=== PATIENT | female | born 1995 | race African-American/Black ===

== ENCOUNTER 2016-11-19 02:45 | Emergency (ER) | payer OTHER ==
[2016-11-19 02:49] VITALS: BP 130/60; PULSE 92; RESP 18; TEMP 98.3
[2016-11-19 03:06] LABS: Appearance,Urine Cloudy (Clear); Bacteria,Urine Rare /hpf; Bilirubin,Urine Negative (Negative); Glucose,Urine (UA) Negative (Negative); Ketones,Urine Negative (Negative); Leukocyte Esterase,Urine Negative (Negative); Mucus,Urine Many /hpf; Nitrite,Urine Negative (Negative); Particle Count 12169; Protein,Urine Trace (Negative); RBC,Urine 1 /hpf (0-5); Specific Gravity,Urine 1.024 (1.001-1.035); Squamous Epithelial Cell,Urine 11 /hpf (0-4); UA Billing (MACRO vs. MICRO) MICRO; Urobilinogen,Urine <2.0 mg/dL (<2.0); WBC,Urine 1 /hpf (0-5)
--- NOTE | 2016-11-19 03:09 | ED ---
General Adult HPI - General Chief complaint: Abdominal Pain Stated complaint: Female Time Seen by Provider: 11/19/16 02:51 Source: patient, RN notes reviewed Mode of arrival: ambulatory Limitations: no limitations - History of Present Illness Initial comments: Patient is a 21-year-old female since emergency room for evaluation of urinary frequency. Patient states she was diagnosed for urinary tract infection about a month ago and was placed on Bactrim and never finished her prescription. Patient states she thinks that her urinary tract infection never went away. Patient states she's been having increasing symptoms over the past week and a half. Patient also states that she hasn't had a menstrual cycle since 10/08/16. Patient states she took a test last week and it was positive. Patient states she has 2 prior previous pregnancies. Patient denies history of miscarriages or ectopic pregnancies. Patient denies vaginal bleeding. Patient states she has a history of chlamydia in 2014. Patient denies any other history of STDs. Patient denies fevers or chills. Patient denies abdominal pain. Patient denies chest pain or shortness of breath. Patient denies nausea or vomiting. Patient denies pain or burning during urination or blood in urine. Patient just states she's having urinary frequency. - Related Data Home Medications Medication Instructions Recorded Confirmed No Known Home Medications [No 01/20/16 11/19/16 Known Home Medications] Allergies Allergy/AdvReac Type Severity Reaction Status Date / Time No Known Allergies Allergy Verified 11/19/16 02:49 Review of Systems ROS Statement: Those systems with pertinent positive or pertinent negative responses have been documented in the HPI. ROS Other: All systems not noted in ROS Statement are negative. Past Medical History Past Medical History: No Reported History History of Any Multi-Drug Resistant Organisms: None Reported Past Surgical History: No Surgical Hx Reported Past Psychological History: No Psychological Hx Reported Smoking Status: Never smoker Past Alcohol Use History: Occasional Past Drug Use History: Marijuana General Exam - General Exam Comments Initial Comments: Sitting in exam room, no acute distress. Limitations: no limitations General appearance: alert, in no apparent distress Head exam: Present: atraumatic, normocephalic, normal inspection Eye exam: Present: normal appearance ENT exam: Present: normal exam Neck exam: Present: normal inspection Respiratory exam: Present: normal lung sounds bilaterally. Absent: respiratory distress Cardiovascular Exam: Present: regular rate, normal rhythm, normal heart sounds GI/Abdominal exam: Present: soft, normal bowel sounds. Absent: distended, tenderness, guarding, rebound, rigid External exam: Present: normal external exam Speculum exam: Present: normal speculum exam By manual exam: Present: normal by manual exam Extremities exam: Present: normal inspection Back exam: Present: normal inspection. Absent: CVA tenderness (R), CVA tenderness (L) Neurological exam: Present: alert, oriented X3, CN II-XII intact, normal gait Psychiatric exam: Present: normal affect, normal mood Skin exam: Present: warm, dry, intact, normal color. Absent: rash Course Vital Signs 11/19/16 02:47 Temperature 98.3 F Pulse Rate 92 Respiratory 18 Rate Blood Pressure 130/60 O2 Sat by Pulse 99 Oximetry Medical Decision Making - Medical Decision Making Patient is a 21-year-old female presents emergency room for violation and urinary frequency. Urinalysis shows no signs of urinary tract infection. Urine beta hCG positive. Advised patient to follow-up with SUBWAY OPERATOR. Advised patient to return for worsening symptoms. Patient states she understands everything that was discussed with her. Case discussed with Dr. Winkler. - Lab Data Lab Results 11/19/16 11/19/16 11/19/16 Range/Units 02:53 02:53 03:11 Urine Color Yellow Urine Appearance Cloudy H (Clear) Urine pH 5.0 (5.0-8.0) Ur Specific [place] 1.024 (1.001-1.035) Urine Protein Trace H (Negative) Urine Glucose (UA) Negative (Negative) Urine Ketones Negative (Negative) Urine Blood Negative (Negative) Urine Nitrite Negative (Negative) Urine Bilirubin Negative (Negative) Urine Urobilinogen <2.0 (<2.0) mg/dL Ur Leukocyte Esterase Negative (Negative) Urine RBC 1 (0-5) /hpf Urine WBC 1 (0-5) /hpf Ur Squamous Epith Cells 11 H (0-4) /hpf Urine Bacteria Rare H (None) /hpf Urine Mucus Many H (None) /hpf Urine HCG, Qual Detected (Not Detectd) Trichomonas Ag (Rapid) Negative (Negative) Disposition Clinical Impression: Positive test Disposition: HOME SELF-CARE Condition: Good Instructions: (ED) Additional Instructions: Please follow up with SUBWAY OPERATOR. If any new symptom arises or symptoms worsen, return to ER as soon as possible. Referrals: Ashely Pascual MD [STAFF PHYSICIAN] - 1-2 days Time of Disposition: 04:02
== END 2016-11-19 04:15 | disposition home or self-care (01) ==
LOC: EC 02:45
DX: O99.89 Other specified diseases and conditions complicating pregnancy, childbirth and the puerperium (principal); R35.0 Frequency of micturition; Z32.01 Encounter for pregnancy test, result positive; Z3A.01 Less than 8 weeks gestation of pregnancy
CPT/HCPCS: 81001; 81025; 87070; 87086; 87205; 87491; 87591; 87808; 99284

== ENCOUNTER 2016-12-03 14:28 | Emergency (ER) | payer OTHER ==
[2016-12-03] MEDS ORDERED: METOCLOPRAMIDE 5 MG/ML 2 ML VIAL IVP STA (15:36)
[2016-12-03] MEDS ORDERED: SODIUM CHLORIDE 0.9% 1,000 ML IV STA ×2 (15:36)
--- NOTE | 2016-12-03 15:42 | ED ---
General Adult HPI - General Chief complaint: Nausea/Vomiting/Diarrhea Stated complaint: 5 weeks preg--vomiting Source: patient, family, RN notes reviewed, old records reviewed Mode of arrival: ambulatory Limitations: no limitations - History of Present Illness Initial comments: Chief complaint history of present illness this is a 21-year-old female here with her significant other 2 children. The patient is 3 para 2. Current pregnancies approximate 6 weeks along. Patient reports last night she didn't feel well vomited 4 times. Hasn't felt well since last night. Missed work last night and doesn't feel up to going to work tonight. She states she had no pain but with some tingling around her lips yesterday. - Related Data Previous Rx's Medication Instructions Recorded Metoclopramide [Reglan] 5 mg PO ACHS #15 tab 12/03/16 Allergies Allergy/AdvReac Type Severity Reaction Status Date / Time No Known Allergies Allergy Verified 12/03/16 15:37 Review of Systems ROS Statement: Those systems with pertinent positive or pertinent negative responses have been documented in the HPI. Review of systems. No visual acuity changes or headache no numbness to her face or hands this time no chest pain or shortness of breath. No abdominal pain. She had nausea vomiting last night. Chronic low back discomfort not new. No frequency urgency or dysuria. Negative urine test done approximately 2 weeks ago. It was positive for being . She thinks she is 6 weeks . No peripheral pain numbness tingling or deficits. All systems are reviewed. Past medical problems. 3 para 2. Current 6 weeks. Chief complaint today is nausea vomiting last night. Patient denies any surgeries. Family history significant for cancers and include when mother with lung cancer 2 aunts with lung cancer and great grandmother breast cancer. The patient denies any ALLERGIES nonsmoker nondrinker. ROS Other: All systems not noted in ROS Statement are negative. Past Medical History Past Medical History: No Reported History History of Any Multi-Drug Resistant Organisms: None Reported Past Surgical History: No Surgical Hx Reported Past Psychological History: No Psychological Hx Reported Smoking Status: Never smoker Past Alcohol Use History: Occasional Past Drug Use History: Marijuana General Exam - General Exam Comments Initial Comments: General: The patient is awake and alert, in no distress, and does not appear acutely ill. Nausea vomiting yesterday. Feels mildly weak here today. Vital signs shows temperature 99.0 pulse 93 respiratory rate 20 pulse ox R percent room air blood pressure 102/73 Eye: Pupils are equal, round and reactive to light, extra-ocular movements are intact ; there is normal conjunctiva bilaterally. No signs of icterus. Ears, nose, mouth and throat: There are moist mucous membranes and no oral lesions. Neck: The neck is supple, there is no tenderness , no anterior cervical lymphadenopathy, thyroid not enlarged. Cardiovascular: There is a regular rate and rhythm. No murmur, rub or gallop is appreciated. Respiratory: Lungs are clear to auscultation, respirations are non-labored, breath sounds are equal. No wheezes, stridor, rales, or rhonchi. Gastrointestinal: Soft, non-distended, non-tender abdomen without masses or organomegaly noted. There is no rebound or guarding present. No CVA tenderness. Bowel sounds are unremarkable. 6 weeks . No vaginal discharge no bleeding. No cramping. Back: There is no tenderness to palpation in the midline. There is no obvious deformity. No rashes noted. Chronic low back discomfort with twisting turning and moving. No injuries. No pain with palpation. Musculoskeletal: Normal ROM, no tenderness, There is no pedal edema. There is no calf tenderness or swelling. Sensation intact. Pulses equal bilaterally 2+. Neurological: No neuro deficits noted at this time. No complaints of any weakness or numbness or tingling. Skin: Skin is warm and dry and no rashes or lesions are noted. Limitations: no limitations Course Vital Signs 12/03/16 14:31 Temperature 99.0 F Pulse Rate 93 Respiratory 20 Rate Blood Pressure 102/73 O2 Sat by Pulse 100 Oximetry Medical Decision Making - Medical Decision Making Medical decision making; patient's white count 10.5 hemoglobin 12 hematocrit 35 with a potassium 3.8. BUN 10 creatinine 0.56 with GFR greater than 60. Glucose 108. Amylase lipase normal limits. Patient was rehydrated in emergency room. She be placed on Reglan tablets to go home with. She has an appointment to follow-up with her ORDER DESK CALLER. If in the meanwhile she has a difficulty she is to return emergency room. Patient is requesting off work slip for yesterday and today. - Lab Data Result diagrams: 12/03/16 16:05 12/03/16 16:05 Lab Results 12/03/16 12/03/16 Range/Units 16:05 16:05 WBC 10.5 (3.8-10.6) k/uL RBC 4.24 (3.80-5.40) m/uL Hgb 12.0 (11.4-16.0) gm/dL Hct 35.5 (34.0-46.0) % MCV 83.8 (80.0-100.0) fL MCH 28.3 (25.0-35.0) pg MCHC 33.7 (31.0-37.0) g/dL RDW 13.9 (11.5-15.5) % Plt Count 237 (150-450) k/uL Neutrophils % 77 % Lymphocytes % 17 % Monocytes % 3 % Eosinophils % 2 % Basophils % 0 % Neutrophils # 8.1 H (1.3-7.7) k/uL Lymphocytes # 1.8 (1.0-4.8) k/uL Monocytes # 0.3 (0-1.0) k/uL Eosinophils # 0.2 (0-0.7) k/uL Basophils # 0.0 (0-0.2) k/uL Sodium 139 (137-145) mmol/L Potassium 3.8 (3.5-5.1) mmol/L Chloride 105 (98-107) mmol/L Carbon Dioxide 22 (22-30) mmol/L Anion Gap 12 mmol/L BUN 10 (7-17) mg/dL Creatinine 0.56 (0.52-1.04) mg/dL Est GFR (MDRD) Af Amer >60 (>60 ml/min/1.73 sqM) Est GFR (MDRD) Non-Af >60 (>60 ml/min/1.73 sqM) Glucose 108 H (74-99) mg/dL Calcium 9.3 (8.4-10.2) mg/dL Total Bilirubin 0.8 (0.2-1.3) mg/dL AST 24 (14-36) U/L ALT 24 (9-52) U/L Alkaline Phosphatase 56 (38-126) U/L Total Protein 7.7 (6.3-8.2) g/dL Albumin 3.9 (3.5-5.0) g/dL Amylase 55 (30-110) U/L Lipase 54 (23-300) U/L Disposition Clinical Impression: Vomiting alone Disposition: HOME SELF-CARE Condition: Stable Instructions: Acute Nausea and Vomiting (ED) Additional Instructions: Use Reglan to control nausea vomiting advance diet. Follow-up family physician and ORDER DESK CALLER. Return emergency room as needed Prescriptions: Metoclopramide [Reglan] 5 mg PO ACHS #15 tab Time of Disposition: 17:05
[2016-12-03 16:15] LABS: Basophils % (A) 0 %; CH 27.9; CHCM 33.3; Eosinophils # (A) 0.2 k/uL (0-0.7); Eosinophils % (A) 2 %; HCT 35.5 % (34.0-46.0); HDW 2.38; Luc # (Auto) 0.11; Luc % (Auto) 1; Lymphocytes # (A) 1.8 k/uL (1.0-4.8); Lymphocytes % (A) 17 %; MCH 28.3 pg (25.0-35.0); MCHC 33.7 g/dL (31.0-37.0); MCV 83.8 fL (80.0-100.0); Mean Platelet Volume 6.9; Monocytes # (A) 0.3 k/uL (0-1.0); Monocytes % (A) 3 %; Neutrophils # (A) 8.1 k/uL (1.3-7.7); Neutrophils % (A) 77 %; RBC 4.24 m/uL (3.80-5.40); RDW 13.9 % (11.5-15.5); WBC 10.5 k/uL (3.8-10.6); WBC (Perox) 10.71
[2016-12-03 16:29] LABS: ALT 24 U/L (9-52); AST 24 U/L (14-36); Alkaline Phosphatase 56 U/L (38-126); Amylase 55 U/L (30-110); Anion Gap 12 mmol/L; Blood Urea Nitrogen 10 mg/dL (7-17); Calcium 9.3 mg/dL (8.4-10.2); Carbon Dioxide 22 mmol/L (22-30); Chloride 105 mmol/L (98-107); Glucose 108 mg/dL (74-99); Non-African American GFR(MDRD) >60 (>60 ml/min/1.73 sqM); Potassium 3.8 mmol/L (3.5-5.1); Sodium 139 mmol/L (137-145); Total Bilirubin 0.8 mg/dL (0.2-1.3); Total Protein 7.7 g/dL (6.3-8.2)
[2016-12-03 17:33] VITALS: BP 90/55; PULSE 90; RESP 18; TEMP 97.8
== END 2016-12-03 17:32 | disposition home or self-care (01) ==
LOC: EC 14:28
DX: O21.9 Vomiting of pregnancy, unspecified (principal); Z3A.01 Less than 8 weeks gestation of pregnancy
CPT/HCPCS: 36415; 80053; 82150; 83690; 85025; 99284; 96374; 96361; J2765

== ENCOUNTER 2016-12-22 11:07 | Emergency (ER) | payer OTHER ==
[2016-12-22 11:11] VITALS: BP 120/67; PULSE 77; RESP 18; TEMP 97.8
--- NOTE | 2016-12-22 11:57 | ED ---
General Adult HPI - General Chief complaint: Nausea/Vomiting/Diarrhea Stated complaint: VOMITNG BLOOD, APX 8 WEEKS Time Seen by Provider: 12/22/16 11:24 Source: patient, RN notes reviewed, old records reviewed Mode of arrival: ambulatory Limitations: no limitations - History of Present Illness Initial comments: This is a 21-year-old female here for evaluation. Patient they presents for evaluation of nausea and vomiting. Patient episodes of vomiting. Patient is a weeks by dates. patient's no abdominal pain no dysuria. No diarrhea. Patient states during one of her episodes of vomiting she did have some blood in her vomit. Bright red. There is since resolved. Patient is currently mildly nauseous but not actively vomiting. States she is able to tolerate oral intake, has been drinking liquids. No pain. - Related Data Home Medications Medication Instructions Recorded Confirmed Metoclopramide [Reglan] 5 mg PO Q8H PRN 12/22/16 12/22/16 Allergies Allergy/AdvReac Type Severity Reaction Status Date / Time No Known Allergies Allergy Verified 12/22/16 11:28 Review of Systems ROS Statement: Those systems with pertinent positive or pertinent negative responses have been documented in the HPI. ROS Other: All systems not noted in ROS Statement are negative. Past Medical History Past Medical History: No Reported History History of Any Multi-Drug Resistant Organisms: None Reported Past Surgical History: No Surgical Hx Reported Past Psychological History: No Psychological Hx Reported Smoking Status: Never smoker Past Alcohol Use History: None Reported Past Drug Use History: None Reported General Exam Limitations: no limitations General appearance: alert, in no apparent distress Head exam: Present: atraumatic, normocephalic, normal inspection Eye exam: Present: normal appearance, PERRL, EOMI. Absent: scleral icterus, conjunctival injection, periorbital swelling ENT exam: Present: normal exam, mucous membranes moist Neck exam: Present: normal inspection. Absent: tenderness, meningismus, lymphadenopathy Respiratory exam: Present: normal lung sounds bilaterally. Absent: respiratory distress, wheezes, rales, rhonchi, stridor Cardiovascular Exam: Present: regular rate, normal rhythm, normal heart sounds. Absent: systolic murmur, diastolic murmur, rubs, gallop, clicks GI/Abdominal exam: Present: soft, normal bowel sounds. Absent: distended, tenderness, guarding, rebound, rigid Extremities exam: Present: normal inspection, full ROM, normal capillary refill. Absent: tenderness, pedal edema, joint swelling, calf tenderness Back exam: Present: normal inspection Neurological exam: Present: alert, oriented X3, CN II-XII intact Psychiatric exam: Present: normal affect, normal mood Skin exam: Present: warm, dry, intact, normal color. Absent: rash Course Vital Signs 12/22/16 11:08 Temperature 97.8 F Pulse Rate 77 Respiratory 18 Rate Blood Pressure 120/67 O2 Sat by Pulse 98 Oximetry - Reevaluation(s) Reevaluation #1: 12/22/16 11:55 Patient consult regarding blood in vomit, questions answered Medical Decision Making - Medical Decision Making 21 female here for evaluation of nausea vomiting of . Patient is 8 weeks , patient had episode of vomiting with blood in vomit. It is resolved. Patient is in no distress. Urine is negative for infection. Patient does have antiemetics at home, we'll prescribe vitamin supplementation and discharge home Disposition Clinical Impression: Vomiting alone, Vomiting affecting Disposition: HOME SELF-CARE Condition: Good Instructions: Nausea and Vomiting in (ED) Referrals: None,Stated [Primary Care Provider] - 1-2 days
[2016-12-22] MEDS ORDERED: diphenhydrAMINE 25 MG CAP PO STA (11:58)
[2016-12-22] MEDS ORDERED: PYRIDOXINE 50 MG TAB PO STA (11:58)
[2016-12-22 12:49] LABS: Appearance,Urine Cloudy (Clear); Bacteria,Urine Rare /hpf; Bilirubin,Urine Negative (Negative); Calcium Oxalate Crystals,Urine Moderate /hpf; Glucose,Urine (UA) Negative (Negative); Ketones,Urine Negative (Negative); Leukocyte Esterase,Urine Negative (Negative); Mucus,Urine Moderate /hpf; Nitrite,Urine Negative (Negative); PH, Urine 5.5 (5.0-8.0); Particle Count 10646; Protein,Urine Trace (Negative); Specific Gravity,Urine 1.024 (1.001-1.035); Squamous Epithelial Cell,Urine 5 /hpf (0-4); UA Billing (MACRO vs. MICRO) MICRO; Urobilinogen,Urine <2.0 mg/dL (<2.0); WBC,Urine 3 /hpf (0-5)
== END 2016-12-22 12:37 | disposition home or self-care (01) ==
LOC: EC 11:07
DX: O21.0 Mild hyperemesis gravidarum (principal); Z3A.08 8 weeks gestation of pregnancy
CPT/HCPCS: 81001; 99284

== ENCOUNTER 2016-12-26 07:56 | Emergency (ER) | payer OTHER ==
[2016-12-26] MEDS ORDERED: SODIUM CHLORIDE 0.9% 1,000 ML IV ONE (08:27)
[2016-12-26] MEDS ORDERED: diphenhydrAMINE 50 MG/ML 1 ML VIAL IVP STA (08:28)
[2016-12-26] MEDS ORDERED: PYRIDOXINE 100 MG/ML 1 ML VIAL IVP STA (08:30)
--- NOTE | 2016-12-26 08:31 | ED ---
Nausea/Vomiting/Diarrhea HPI - General Chief complaint: Nausea/Vomiting/Diarrhea Stated complaint: 2 month , vomiting Time Seen by Provider: 12/26/16 08:12 Source: patient, RN notes reviewed Mode of arrival: ambulatory Limitations: no limitations - History of Present Illness Initial comments: Patient is a 21-year-old female presents to the emergency room for evaluation of vomiting. Patient states she is about 11 weeks . Patient states she 's had multiple episodes of vomiting during this . Patient is . Patient states she's been vomiting for the past 3 days. Patient states she has been unable to keep any food down or drink any water. Patient states she has Reglan at home and is not helping her. Patient denies abdominal pain. Patient does state she's having throat pain. Patient states the throat pain began after vomiting started. Patient denies fevers or chills. Patient denies headache or dizziness. Patient denies pain or burning during urination, trouble urinating or blood in urine. Patient denies any vaginal bleeding or vaginal discomfort. Patient denies any history of abdominal surgeries. Patient denies chest pain or shortness of breath. - Related Data Home Medications Medication Instructions Recorded Confirmed Metoclopramide [Reglan] 5 mg PO Q8H PRN 12/22/16 12/26/16 Wpi-Zrkt-[place] Acid 1 cap PO DAILY 12/26/16 12/26/16 [-U Capsule (formulary)] Allergies Allergy/AdvReac Type Severity Reaction Status Date / Time No Known Allergies Allergy Verified 12/26/16 08:03 Review of Systems ROS Statement: Those systems with pertinent positive or pertinent negative responses have been documented in the HPI. ROS Other: All systems not noted in ROS Statement are negative. Past Medical History Past Medical History: No Reported History History of Any Multi-Drug Resistant Organisms: None Reported Past Surgical History: No Surgical Hx Reported Past Psychological History: No Psychological Hx Reported Smoking Status: Never smoker Past Alcohol Use History: None Reported Past Drug Use History: None Reported General Exam - General Exam Comments Initial Comments: Laying in exam room, no acute distress. Limitations: no limitations General appearance: alert, in no apparent distress Head exam: Present: atraumatic, normocephalic, normal inspection Eye exam: Present: normal appearance ENT exam: Present: normal exam Neck exam: Present: normal inspection Respiratory exam: Present: normal lung sounds bilaterally. Absent: respiratory distress Cardiovascular Exam: Present: regular rate, normal rhythm, normal heart sounds GI/Abdominal exam: Present: soft, normal bowel sounds. Absent: distended, tenderness, guarding, rebound, rigid Extremities exam: Present: normal inspection Back exam: Present: normal inspection Neurological exam: Present: alert, oriented X3, CN II-XII intact, normal gait Psychiatric exam: Present: normal affect, normal mood Skin exam: Present: warm, dry, intact, normal color. Absent: rash Course Vital Signs 12/26/16 08:00 Temperature 98.5 F Pulse Rate 98 Respiratory 16 Rate Blood Pressure 113/77 O2 Sat by Pulse 99 Oximetry Medical Decision Making - Medical Decision Making Patient is a 21-year-old female presents emergency room for evaluation of vomiting. Patient is about 11 weeks . Patient given antinausea medications and feeling better. Labs show no concerning findings. Advised patient to continue taking Reglan at home as needed and to follow-up with her OB /AEROSPACE ENGINEER in 24-48 hours. Patient states she understands everything that was discussed with her. Return parameters discussed. Case discussed with Dr. Austin. - Lab Data Result diagrams: 12/26/16 08:26 12/26/16 08:26 Lab Results 12/26/16 12/26/16 12/26/16 Range/Units 08:26 08:26 08:26 WBC 7.8 (3.8-10.6) k/uL RBC 4.30 (3.80-5.40) m/uL Hgb 12.3 (11.4-16.0) gm/dL Hct 36.4 (34.0-46.0) % MCV 84.7 (80.0-100.0) fL MCH 28.7 (25.0-35.0) pg MCHC 33.9 (31.0-37.0) g/dL RDW 13.6 (11.5-15.5) % Plt Count 253 (150-450) k/uL Neutrophils % 75 % Lymphocytes % 18 % Monocytes % 4 % Eosinophils % 2 % Basophils % 0 % Neutrophils # 5.8 (1.3-7.7) k/uL Lymphocytes # 1.4 (1.0-4.8) k/uL Monocytes # 0.3 (0-1.0) k/uL Eosinophils # 0.2 (0-0.7) k/uL Basophils # 0.0 (0-0.2) k/uL Sodium 140 (137-145) mmol/L Potassium 4.4 (3.5-5.1) mmol/L Chloride 108 H (98-107) mmol/L Carbon Dioxide 22 (22-30) mmol/L Anion Gap 10 mmol/L BUN 10 (7-17) mg/dL Creatinine 0.54 (0.52-1.04) mg/dL Est GFR (MDRD) Af Amer >60 (>60 ml/min/1.73 sqM) Est GFR (MDRD) Non-Af >60 (>60 ml/min/1.73 sqM) Glucose 91 (74-99) mg/dL Calcium 9.4 (8.4-10.2) mg/dL Total Bilirubin 0.6 (0.2-1.3) mg/dL AST 33 (14-36) U/L ALT 29 (9-52) U/L Alkaline Phosphatase 56 (38-126) U/L Total Protein 7.9 (6.3-8.2) g/dL Albumin 3.9 (3.5-5.0) g/dL Urine Color Urine Appearance (Clear) Urine pH (5.0-8.0) Ur Specific [place] (1.001-1.035) Urine Protein (Negative) Urine Glucose (UA) (Negative) Urine Ketones (Negative) Urine Blood (Negative) Urine Nitrite (Negative) Urine Bilirubin (Negative) Urine Urobilinogen (<2.0) mg/dL Ur Leukocyte Esterase (Negative) Influenza Type A RNA Not Detected (Not Detectd) Influenza Type B (PCR) Not Detected (Not Detectd) Group A Strep Rapid (Negative) 12/26/16 12/26/16 Range/Units 08:26 08:26 WBC (3.8-10.6) k/uL RBC (3.80-5.40) m/uL Hgb (11.4-16.0) gm/dL Hct (34.0-46.0) % MCV (80.0-100.0) fL MCH (25.0-35.0) pg MCHC (31.0-37.0) g/dL RDW (11.5-15.5) % Plt Count (150-450) k/uL Neutrophils % % Lymphocytes % % Monocytes % % Eosinophils % % Basophils % % Neutrophils # (1.3-7.7) k/uL Lymphocytes # (1.0-4.8) k/uL Monocytes # (0-1.0) k/uL Eosinophils # (0-0.7) k/uL Basophils # (0-0.2) k/uL Sodium (137-145) mmol/L Potassium (3.5-5.1) mmol/L Chloride (98-107) mmol/L Carbon Dioxide (22-30) mmol/L Anion Gap mmol/L BUN (7-17) mg/dL Creatinine (0.52-1.04) mg/dL Est GFR (MDRD) Af Amer (>60 ml/min/1.73 sqM) Est GFR (MDRD) Non-Af (>60 ml/min/1.73 sqM) Glucose (74-99) mg/dL Calcium (8.4-10.2) mg/dL Total Bilirubin (0.2-1.3) mg/dL AST (14-36) U/L ALT (9-52) U/L Alkaline Phosphatase (38-126) U/L Total Protein (6.3-8.2) g/dL Albumin (3.5-5.0) g/dL Urine Color Yellow Urine Appearance Clear (Clear) Urine pH 6.0 (5.0-8.0) Ur Specific [place] 1.024 (1.001-1.035) Urine Protein Trace H (Negative) Urine Glucose (UA) Negative (Negative) Urine Ketones Negative (Negative) Urine Blood Negative (Negative) Urine Nitrite Negative (Negative) Urine Bilirubin Negative (Negative) Urine Urobilinogen <2.0 (<2.0) mg/dL Ur Leukocyte Esterase Negative (Negative) Influenza Type A RNA (Not Detectd) Influenza Type B (PCR) (Not Detectd) Group A Strep Rapid Negative (Negative) Disposition Clinical Impression: Vomiting alone, Vomiting affecting Disposition: HOME SELF-CARE Condition: Good Instructions: Hyperemesis Gravidarum (ED) Additional Instructions: Drink plenty of fluids. Take at home nausea medications as needed. Please follow-up with EXPERIMENTAL FLIGHT TEST MECHANIC in 24-48 hours. If any new symptom arises or symptoms worsen, return to ER as soon as possible. Referrals: Aleena Kaufman DO [Primary Care Provider] - 1-2 days Time of Disposition: 09:52
[2016-12-26 08:44] LABS: Appearance,Urine Clear (Clear); Bilirubin,Urine Negative (Negative); Glucose,Urine (UA) Negative (Negative); Ketones,Urine Negative (Negative); Leukocyte Esterase,Urine Negative (Negative); Nitrite,Urine Negative (Negative); Protein,Urine Trace (Negative); Specific Gravity,Urine 1.024 (1.001-1.035); UA Billing (MACRO vs. MICRO) CHEM; Urobilinogen,Urine <2.0 mg/dL (<2.0)
[2016-12-26 08:55] LABS: ALT 29 U/L (9-52); AST 33 U/L (14-36); Alkaline Phosphatase 56 U/L (38-126); Anion Gap 10 mmol/L; Blood Urea Nitrogen 10 mg/dL (7-17); Calcium 9.4 mg/dL (8.4-10.2); Carbon Dioxide 22 mmol/L (22-30); Chloride 108 mmol/L (98-107); Glucose 91 mg/dL (74-99); Non-African American GFR(MDRD) >60 (>60 ml/min/1.73 sqM); Sodium 140 mmol/L (137-145); Total Bilirubin 0.6 mg/dL (0.2-1.3); Total Protein 7.9 g/dL (6.3-8.2)
[2016-12-26 08:58] LABS: Potassium 4.4 mmol/L (3.5-5.1)
[2016-12-26 09:01] LABS: Basophils % (A) 0 %; CH 28.2; CHCM 33.4; Eosinophils # (A) 0.2 k/uL (0-0.7); Eosinophils % (A) 2 %; HCT 36.4 % (34.0-46.0); HDW 2.42; HGB 12.3 gm/dL (11.4-16.0); Luc # (Auto) 0.12; Luc % (Auto) 2; Lymphocytes # (A) 1.4 k/uL (1.0-4.8); Lymphocytes % (A) 18 %; MCH 28.7 pg (25.0-35.0); MCHC 33.9 g/dL (31.0-37.0); MCV 84.7 fL (80.0-100.0); Mean Platelet Volume 7.3; Monocytes # (A) 0.3 k/uL (0-1.0); Monocytes % (A) 4 %; Neutrophils # (A) 5.8 k/uL (1.3-7.7); Neutrophils % (A) 75 %; RDW 13.6 % (11.5-15.5); WBC 7.8 k/uL (3.8-10.6); WBC (Perox) 8.42
[2016-12-26] MEDS ORDERED: METOCLOPRAMIDE 5 MG/ML 2 ML VIAL IVP STA (09:45)
[2016-12-26 10:13] VITALS: BP 96/55; PULSE 84; RESP 18; TEMP 98.9
== END 2016-12-26 10:48 | disposition home or self-care (01) ==
LOC: EC 07:56
DX: O21.0 Mild hyperemesis gravidarum (principal); Z3A.11 11 weeks gestation of pregnancy
CPT/HCPCS: 36415; 80053; 85025; 81003; 87081; 87430; 87502; 99284; 96374; 96375 ×2; 96361; J1200; J3415; J2765

== ENCOUNTER → 2017-01-08 | Outpatient (CLI) | payer OTHER ==
--- NOTE | 2017-01-08 15:49 | US ---
EXAMINATION TYPE: US OB <= 14 wk fetus DATE OF EXAM: 01/08/2017 3:32 PM COMPARISON: NONE CLINICAL HISTORY: Z36 CONFIRM DATES. EXAM PERFORMED: Transabdominal (TA) EXAM MEASUREMENTS: GESTATIONAL AGE / DATING Physician Established: not established Dates by LMP: (13 weeks/1 days) EDC: 07/15/17 Dates by First Scan: no prior Dates by Current Scan for: (11 weeks/5 days) EDC: 07/25/17 MATERNAL ANATOMY Uterus: 10.9 x 7.4 x 9.5cm Right Ovary: 2.4 x 1.6 x 1.8cm Left Ovary: 3.0 x 2.9 x 1.7cm Post CDS / Adnexa: wnl Presence of free fluid: no Presence of corpus luteal cyst: yes, left ovary = 1.9 x 1.5 x 2.0cm Presence of subchorionic bleed: yes, inferior to gestational sac = 1.1 x 1.8cm GESTATION / SURVEY CRL: 4.9cm (11 weeks/5 days) Yolk Sac (normal less than 6mm): not seen Heart Rate: 172 bpm Rhythm: Normal IUP: Viable IUP Nuchal Translucency 10-14wks (normal less than 3mm): 0.2cm Date of LMP: 10/08/16 Beta HcG (if available): unavailable Single viable IUP 11wks/5days with BERENICE of 07/25/17. Probable corpus luteum left ovary. Small subchori onic bleed inferior to gestational sac IMPRESSION: Single viable intrauterine corresponding to ultrasound age of 11 weeks 5 days with estimate d date of delivery 25 July 2017 by today's exam. Small subchorionic hemorrhage is noted.
== END | disposition home or self-care (01) ==
LOC: RADUSWWP 15:10
PROVIDERS: ATTEND Obstetrics & Gynecology
DX: Z36 Encounter for antenatal screening of mother (principal); Z3A.11 11 weeks gestation of pregnancy
CPT/HCPCS: 76801

== ENCOUNTER 2017-02-08 10:47 | Emergency (ER) | payer OTHER ==
[2017-02-08] MEDS ORDERED: SODIUM CHLORIDE 0.9% 1,000 ML IV STA (10:56)
[2017-02-08] MEDS ORDERED: SODIUM CHLORIDE 0.9% 500 ML IV STA (10:56)
[2017-02-08 11:38] LABS: Basophils % (A) 0 %; CH 28.7; CHCM 33.3; Eosinophils # (A) 0.4 k/uL (0-0.7); Eosinophils % (A) 4 %; HCT 33.1 % (34.0-46.0); HDW 2.44; HGB 11.2 gm/dL (11.4-16.0); Luc # (Auto) 0.14; Luc % (Auto) 2; Lymphocytes # (A) 1.7 k/uL (1.0-4.8); Lymphocytes % (A) 21 %; MCH 29.4 pg (25.0-35.0); MCHC 33.9 g/dL (31.0-37.0); MCV 86.7 fL (80.0-100.0); Mean Platelet Volume 6.8; Monocytes # (A) 0.3 k/uL (0-1.0); Monocytes % (A) 3 %; Neutrophils # (A) 5.6 k/uL (1.3-7.7); Neutrophils % (A) 69 %; RBC 3.82 m/uL (3.80-5.40); RDW 14.9 % (11.5-15.5); WBC 8.1 k/uL (3.8-10.6); WBC (Perox) 7.95
[2017-02-08 11:46] LABS: Appearance,Urine Turbid (Clear); Bacteria,Urine Occasional /hpf; Bilirubin,Urine Negative (Negative); Glucose,Urine (UA) Negative (Negative); Ketones,Urine Negative (Negative); Leukocyte Esterase,Urine Small (Negative); Mucus,Urine Occasional /hpf; Nitrite,Urine Negative (Negative); PH, Urine 7.5 (5.0-8.0); Particle Count 42671; Protein,Urine Trace (Negative); Specific Gravity,Urine 1.013 (1.001-1.035); Squamous Epithelial Cell,Urine 8 /hpf (0-4); UA Billing (MACRO vs. MICRO) MICRO; Urobilinogen,Urine <2.0 mg/dL (<2.0); WBC,Urine 18 /hpf (0-5)
[2017-02-08 11:49] LABS: ALT 15 U/L (9-52); AST 16 U/L (14-36); Alkaline Phosphatase 63 U/L (38-126); Anion Gap 10 mmol/L; Blood Urea Nitrogen 5 mg/dL (7-17); Calcium 9.4 mg/dL (8.4-10.2); Carbon Dioxide 22 mmol/L (22-30); Chloride 107 mmol/L (98-107); Glucose 99 mg/dL (74-99); Magnesium 1.7 mg/dL (1.6-2.3); Non-African American GFR(MDRD) >60 (>60 ml/min/1.73 sqM); Phosphorous 3.9 mg/dL (2.5-4.5); Potassium 3.7 mmol/L (3.5-5.1); Sodium 139 mmol/L (137-145); Total Bilirubin 0.5 mg/dL (0.2-1.3); Total Protein 7.2 g/dL (6.3-8.2)
--- NOTE | 2017-02-08 12:03 | ED ---
General Adult HPI - General Chief complaint: Syncope Stated complaint: SYNCOPE, VOMITING APX 16 WEEKS PREG Time Seen by Provider: 02/08/17 10:56 Source: patient, RN notes reviewed, old records reviewed Mode of arrival: wheelchair Limitations: no limitations - History of Present Illness Initial comments: This is a 21-year-old female year with history of positive into a syncopal event. He points no chest pain headache shortness of breath or abdominal pain. Patient has had normal and about 16 week confirmed by ultrasound. No bleeding. Patient denies any vaginal discharge or drainage. She had a couple episodes of vomiting last night. Which is normal during her . And she did have a syncopal and today when trying change of position. Patient states her appetite has been good she does try to drink excessive amounts of water. Patient is a , and does have prior history of syncope during - Related Data Home Medications Medication Instructions Recorded Confirmed Metoclopramide [Reglan] 5 mg PO Q8H PRN 12/22/16 12/26/16 [id number] Acid 1 cap PO DAILY 12/26/16 12/26/16 [-U Capsule (formulary)] Allergies Allergy/AdvReac Type Severity Reaction Status Date / Time No Known Allergies Allergy Verified 02/08/17 10:55 Review of Systems ROS Statement: Those systems with pertinent positive or pertinent negative responses have been documented in the HPI. ROS Other: All systems not noted in ROS Statement are negative. Past Medical History Past Medical History: No Reported History History of Any Multi-Drug Resistant Organisms: None Reported Past Surgical History: No Surgical Hx Reported Past Psychological History: No Psychological Hx Reported Smoking Status: Never smoker Past Alcohol Use History: None Reported Past Drug Use History: None Reported General Exam Limitations: no limitations General appearance: alert, in no apparent distress Head exam: Present: atraumatic, normocephalic, normal inspection Eye exam: Present: normal appearance, PERRL, EOMI. Absent: scleral icterus, conjunctival injection, periorbital swelling ENT exam: Present: normal exam, mucous membranes moist Neck exam: Present: normal inspection. Absent: tenderness, meningismus, lymphadenopathy Respiratory exam: Present: normal lung sounds bilaterally. Absent: respiratory distress, wheezes, rales, rhonchi, stridor Cardiovascular Exam: Present: regular rate, normal rhythm, normal heart sounds. Absent: systolic murmur, diastolic murmur, rubs, gallop, clicks GI/Abdominal exam: Present: soft, normal bowel sounds. Absent: distended, tenderness, guarding, rebound, rigid Extremities exam: Present: normal inspection, full ROM, normal capillary refill. Absent: tenderness, pedal edema, joint swelling, calf tenderness Back exam: Present: normal inspection Neurological exam: Present: alert, oriented X3, CN II-XII intact Psychiatric exam: Present: normal affect, normal mood Skin exam: Present: warm, dry, intact, normal color. Absent: rash Course Vital Signs 02/08/17 02/08/17 10:52 12:12 Temperature 97.8 F 97.9 F Pulse Rate 85 87 Respiratory 18 16 Rate Blood Pressure 115/69 114/65 O2 Sat by Pulse 99 100 Oximetry - Reevaluation(s) Reevaluation #1: 02/08/17 12:59 Patient again has no complaints of chest pain shortness of breath or abdominal pain. Reevaluation #2: 02/08/17 12:59 Patient discussed at length regarding possible urinary tract infection, will follow up on cultures Medical Decision Making - Medical Decision Making 21 female year positive . Patient coming in for evaluation of syncopal event. At this time no active nausea and vomiting. Patient's in no distress, no vaginal bleeding. No vaginal discharge. Patient states her symptoms are improved, again denies chest pain shortness of breath or abdominal pain - Lab Data Result diagrams: 02/08/17 11:15 02/08/17 11:15 Lab Results 02/08/17 02/08/17 02/08/17 Range/Units 11:15 11:15 11:15 WBC 8.1 (3.8-10.6) k/uL RBC 3.82 (3.80-5.40) m/uL Hgb 11.2 L (11.4-16.0) gm/dL Hct 33.1 L (34.0-46.0) % MCV 86.7 (80.0-100.0) fL MCH 29.4 (25.0-35.0) pg MCHC 33.9 (31.0-37.0) g/dL RDW 14.9 (11.5-15.5) % Plt Count 257 (150-450) k/uL Neutrophils % 69 % Lymphocytes % 21 % Monocytes % 3 % Eosinophils % 4 % Basophils % 0 % Neutrophils # 5.6 (1.3-7.7) k/uL Lymphocytes # 1.7 (1.0-4.8) k/uL Monocytes # 0.3 (0-1.0) k/uL Eosinophils # 0.4 (0-0.7) k/uL Basophils # 0.0 (0-0.2) k/uL Sodium 139 (137-145) mmol/L Potassium 3.7 (3.5-5.1) mmol/L Chloride 107 (98-107) mmol/L Carbon Dioxide 22 (22-30) mmol/L Anion Gap 10 mmol/L BUN 5 L (7-17) mg/dL Creatinine 0.48 L (0.52-1.04) mg/dL Est GFR (MDRD) Af Amer >60 (>60 ml/min/1.73 sqM) Est GFR (MDRD) Non-Af >60 (>60 ml/min/1.73 sqM) Glucose 99 (74-99) mg/dL Calcium 9.4 (8.4-10.2) mg/dL Phosphorus 3.9 (2.5-4.5) mg/dL Magnesium 1.7 (1.6-2.3) mg/dL Total Bilirubin 0.5 (0.2-1.3) mg/dL AST 16 (14-36) U/L ALT 15 (9-52) U/L Alkaline Phosphatase 63 (38-126) U/L Total Protein 7.2 (6.3-8.2) g/dL Albumin 3.6 (3.5-5.0) g/dL Urine Color Yellow Urine Appearance Turbid H (Clear) Urine pH 7.5 (5.0-8.0) Ur Specific [place] 1.013 (1.001-1.035) Urine Protein Trace H (Negative) Urine Glucose (UA) Negative (Negative) Urine Ketones Negative (Negative) Urine Blood Negative (Negative) Urine Nitrite Negative (Negative) Urine Bilirubin Negative (Negative) Urine Urobilinogen <2.0 (<2.0) mg/dL Ur Leukocyte Esterase Small H (Negative) Urine WBC 18 H (0-5) /hpf Ur Squamous Epith Cells 8 H (0-4) /hpf Urine Bacteria Occasional H (None) /hpf Urine Mucus Occasional H (None) /hpf Disposition Clinical Impression: Vasovagal syncope Disposition: HOME SELF-CARE Condition: Good Instructions: Syncope (ED) Referrals: Aleena Kaufman DO [Primary Care Provider] - 1-2 days
[2017-02-08 12:14] VITALS: BP 114/65; PULSE 87; RESP 16; TEMP 97.9
== END 2017-02-08 12:12 | disposition home or self-care (01) ==
LOC: EC 10:47
DX: O26.892 Other specified pregnancy related conditions, second trimester (principal); R55 Syncope and collapse; Z79.899 Other long term (current) drug therapy; Z3A.16 16 weeks gestation of pregnancy
CPT/HCPCS: 36415; 80053; 81001; 83735; 84100; 85025; 87086; 93005; 96360; 99284

== ENCOUNTER 2017-04-21 02:40 | Outpatient (CLI) | payer OTHER ==
[2017-04-21 03:00] VITALS: BP 119/76; PULSE 100; RESP 16; TEMP 98.3
[2017-04-21 03:41] LABS: Amorphous Sediment,Urine Rare /hpf; Appearance,Urine Turbid (Clear); Bilirubin,Urine Negative (Negative); Calcium Oxalate Crystals,Urine Moderate /hpf; Glucose,Urine (UA) Negative (Negative); Ketones,Urine Negative (Negative); Leukocyte Esterase,Urine Small (Negative); Mucus,Urine Rare /hpf; Nitrite,Urine Negative (Negative); Particle Count 16883; Protein,Urine Trace (Negative); RBC,Urine 6 /hpf (0-5); Specific Gravity,Urine 1.009 (1.001-1.035); Squamous Epithelial Cell,Urine 4 /hpf (0-4); UA Billing (MACRO vs. MICRO) MICRO; Urobilinogen,Urine <2.0 mg/dL (<2.0); WBC,Urine 16 /hpf (0-5)
--- NOTE | 2017-04-29 17:33 | P.MSEPDOC ---
Presenting Problems - Arrival Data Date of Arrival on Unit: 04/21/17 Time of Arrival on Unit: 02:40 Mode of Transport: Wheelchair - Complaint OB-Reason for Admission/Chief Complaint: Pain Comment: Abdominal pain that comes and goes for the last 25 minutes Medical History - Information : 3 Para: 2 Term: 2 : 0 Abortions: Spontaneous or Elective: 0 Number of Living Children: 2 - Gestational Age Expected Date of Delivery: 07/25/17 Gestational Age by BERENICE (wks/days): 27 Weeks and 4 Days Review of Systems - Review of Systems Constitutional: No problems Breast: No problems ENT: No problems Cardiovascular: No problems Respiratory: No problems Gastrointestinal: No problems Genitourinary: No problems Musculoskeletal: No problems Neurological: No problems Skin: No problems Vital Signs - Temperature Temperature: 98.3 F Temperature Source: Temporal Artery Scan - Pulse Pulse Oximetery Pulse Rate: 100 Pulse Assessment Method: Pulse Oximetry - Respirations Respiratory Rate: 16 Oxygen Delivery Method: Room Air - Blood Pressure Sitting Blood Pressure: 119/76 Blood Pressure Mean: 90 Blood Pressure Source: Automatic Cuff Medical Screen Scoring (Pre) - Cervical Exam Dilation: 0 cm = 0 Membranes: Intact - Uterine Contractions Frequency: N/A Duration: N/A Intensity: N/A - Maternal Vital Signs Maternal Temperature: N/A Maternal Blood Pressure: N/A Signs of Preeclampsia: N/A Maternal Respirations: N/A - Maternal Trauma Maternal Trauma: N/A - Assessment Baseline FHR: 150 Heart Rate - NICHD Category: Category I (Normal) = 0 NST: Reactive Position: N/A Station: N/A - Total Score Total Score (Pre): 0 - Level of Risk Level of Risk: N/A Physician Notification (Pre) - Physician Notified Physician Notified Date: 04/21/17 Physician Notified Time: 03:23 Physician/Practitioner Notifed:: Dr. Sandhu - Notification Comment Comment: Collect and send UA, Collect FFN, Check cervix, if cervix is closed and patient is not john discard ffn. Orally Hydrate patient. If UA comes back clear discharge patient home with instructions, otherwise call physician with report. Medical Screen Scoring (Post) - Uterine Contractions Frequency: N/A Duration: N/A Intensity: N/A - Maternal Vital Signs Maternal Temperature: N/A Maternal Blood Pressure: N/A Signs of Preeclampsia: N/A Maternal Respirations: N/A - Maternal Trauma Maternal Trauma: N/A - Assessment Heart Rate: 150 Heart Rate - NICHD Category: Category I (Normal) = 0 NST: Reactive Position: N/A Station: N/A - Total Score Total Score (Post): 0 - Post Treatment Level of Risk Post Treatment Level of Risk: N/A Physician Notification (Post) - Physician Notified Physician Notified Date: 04/21/17 Physician Notified Time: 03:52 Physician/Practitioner Notified:: Dr. Sandhu - Notification Comment Comment: Patient to increased fluid intake, discharge home with instructions, may take regular tylenol over the counter for pain as directed on the bottle. Disposition - Disposition OB Disposition: Discharge to home, Written follow up instructions reviewed Discharge Date: 04/21/17 Discharge Time: 03:57 I agree with the RN Medical Screening Exam: Yes Risk & Benefit of care provided described in d/c instruction: Yes Diagnosis: UNSPECIFIED ABDOMINAL PAIN
== END 2017-04-21 04:00 | disposition home or self-care (01) ==
LOC: FBPOP 02:40
PROVIDERS: ATTEND Obstetrics & Gynecology
DX: R10.9 Unspecified abdominal pain (principal); O26.892 Other specified pregnancy related conditions, second trimester; Z3A.27 27 weeks gestation of pregnancy
CPT/HCPCS: 81001; G0463; 99213

== ENCOUNTER → 2017-06-05 | Outpatient (CLI) | payer SELFPAY ==
[2017-06-05 12:59] LABS: CH 27.7; CHCM 31.9; HCT 31.4 % (34.0-46.0); HDW 3.28; HGB 10.2 gm/dL (11.4-16.0); Hypochromasia Slight; MCH 28.4 pg (25.0-35.0); MCHC 32.5 g/dL (31.0-37.0); MCV 87.4 fL (80.0-100.0); Mean Platelet Volume 7.7; RBC 3.59 m/uL (3.80-5.40); RDW 14.1 % (11.5-15.5); WBC 6.3 k/uL (3.8-10.6)
[2017-06-05 13:50] LABS: Glucose 77 mg/dL (74-99); Non-African American GFR(MDRD) >60 (>60 ml/min/1.73 sqM)
[2017-06-05 18:47] LABS: Treponemal Ab Non-Reactive (Non-Reactive)
[2017-06-08 09:26] LABS: Alpha Fetoprotein 164.5 ng/mL; Down Sydrome Risk 1:N/A; Gestational Age (days) 6; Human Chorionic Gonadotropin 10.4 IU/mL; Interpretation SeeBelow; Maternal Age Risk for Down 1:N/A; Maternal Age at EDD (Yrs) 24; Smoker No
== END | disposition home or self-care (01) ==
LOC: LABWHC1 12:26
PROVIDERS: ATTEND Obstetrics & Gynecology
DX: Z34.82 Encounter for supervision of other normal pregnancy, second trimester (principal); Z3A.00 Weeks of gestation of pregnancy not specified
CPT/HCPCS: 36415; 82105; 82565; 82677; 82947; 84702; 85027; 86336; 86762; 86780; 86850; 86900; 86901; 87340

== ENCOUNTER 2017-10-27 17:54 | Emergency (ER) | payer OTHER ==
--- NOTE | 2017-10-27 19:46 | ED ---
Skin/Abscess/FB HPI - General Chief complaint: Skin/Abscess/Foreign Body Stated complaint: boils under arm Time Seen by Provider: 10/27/17 19:08 Source: patient, RN notes reviewed, old records reviewed Mode of arrival: ambulatory Limitations: no limitations - History of Present Illness Initial comments: 22-year-old female presents emergency Department chief complaint of abscesses underneath both of her axilla and under her right breast. Patient reports that she's been having the symptoms for 6 years. 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 She states that she's had no recent antibiotics. She reports that the drainage has been more frequent and painful. She does not she is arm. She states she tries to keep them dry. Patient reports that she's had no history of MRSA.Patient denies any recent fever, chills, shortness of breath, chest pain, back pain, abdominal pain, nausea vomiting, numbness or tingling, dysuria or hematuria, constipation or diarrhea, headaches or visual changes, or any other current symptoms - Related Data Home Medications Medication Instructions Recorded Confirmed Ibuprofen [Motrin Ib] 600 mg PO Q6H PRN 10/27/17 10/27/17 Previous Rx's Medication Instructions Recorded Clindamycin Gel [Clindamycin 1 applic TOPICAL BID #60 gram 10/27/17 Phosphate] Mupirocin 2% Oint [Bactroban 2% 1 applic TOPICAL TID #60 gm 10/27/17 Oint] Sulfamethox-Tmp 800-160Mg [Bactrim 2 tab PO Q12HR #40 tab 10/27/17 DS 800-160 mg] Allergies Allergy/AdvReac Type Severity Reaction Status Date / Time No Known Allergies Allergy Verified 10/27/17 19:15 Review of Systems ROS Statement: Those systems with pertinent positive or pertinent negative responses have been documented in the HPI. ROS Other: All systems not noted in ROS Statement are negative. Past Medical History Past Medical History: No Reported History Additional Past Medical History / Comment(s): OB history: 2 previous vaginal deliveries. This is her third . She has had care with me since 10 weeks but has been somewhat noncompliant with her care. She did not get her diabetes screening test done until after 32 weeks and was diagnosed with gestational diabetes. O+, abs neg, Rub Imm, Hep B neg, GBS+. History of Any Multi-Drug Resistant Organisms: None Reported Past Surgical History: No Surgical Hx Reported Past Anesthesia/Blood Transfusion Reactions: No Reported Reaction Past Psychological History: No Psychological Hx Reported Smoking Status: Never smoker Past Alcohol Use History: None Reported Past Drug Use History: None Reported - Past Family History Mother Family Medical History: Thyroid Disorder General Exam - General Exam Comments Initial Comments: This is a 22-year-old female. No distress. Limitations: no limitations General appearance: alert, in no apparent distress Head exam: Present: atraumatic, normocephalic, normal inspection Eye exam: Present: normal appearance, PERRL, EOMI. Absent: scleral icterus, conjunctival injection, periorbital swelling ENT exam: Present: normal exam, mucous membranes moist Neck exam: Present: normal inspection. Absent: tenderness, meningismus, lymphadenopathy Respiratory exam: Present: normal lung sounds bilaterally. Absent: respiratory distress, wheezes, rales, rhonchi, stridor Cardiovascular Exam: Present: regular rate, normal rhythm, normal heart sounds. Absent: systolic murmur, diastolic murmur, rubs, gallop, clicks GI/Abdominal exam: Present: soft, normal bowel sounds. Absent: distended, tenderness, guarding, rebound, rigid Back exam: Present: normal inspection Neurological exam: Present: alert, oriented X3, CN II-XII intact Psychiatric exam: Present: normal affect, normal mood Skin exam: Present: warm, dry, intact, normal color, rash (Patient has significant areas of abscesses over bilateral axilla. Areas of scarring. She also has a small 2 cm abscess underneath her right breast. Patient's findings are consistent with hydradenitis suppurativa.) Course Vital Signs 10/27/17 19:02 Temperature 99.5 F Pulse Rate 77 Respiratory 20 Rate Blood Pressure 140/85 O2 Sat by Pulse 100 Oximetry Medical Decision Making - Medical Decision Making Patient is a 22-year-old female chief complaint of abscess over bilateral axilla. No fevers or chills. Patient reports she's had these symptoms for 6 years. She's never seen a production support supervisor or his had much follow-up in regards to this. Patient at this time has multiple abscesses underneath bilateral axilla. A did do some small incision and drainage and did remove a significant amount of pus. Due to the amount of abscesses I discussed I cannot completely H1 of them at this time. Discussed the patient needs follow-up with a production support supervisor. Patient will be started on Bactrim 2 tabs twice a day as well as clindamycin and Bactroban ointment. Discussed she does keep the areas dry. Given multiple referrals for production support supervisor in the surgeon. Patient agrees to treatment plan will comply. Return parameters were discussed. Disposition Clinical Impression: Hidradenitis suppurativa Disposition: HOME SELF-CARE Condition: Good Instructions: Hidradenitis Suppurativa (ED) Additional Instructions: Patient advised to follow-up with primary care physician, production support supervisor as well as the possible surgeon for removal. Patient should take the medication as prescribed. Apply the antibiotic ointment as well. Return to the emergency department if any alarming signs or symptoms occur. Prescriptions: Clindamycin Gel [Clindamycin Phosphate] 1 applic TOPICAL BID #60 gram Mupirocin 2% Oint [Bactroban 2% Oint] 1 applic TOPICAL TID #60 gm Sulfamethox-Tmp 800-160Mg [Bactrim DS 800-160 mg] 2 tab PO Q12HR #40 tab Referrals: None,Stated [Primary Care Provider] - 1-2 days Isma Shepherd MD [STAFF PHYSICIAN] - 1-2 days Campos Cline MD [REFERRING] - 1-2 days Leonel Do MD [REFERRING] - 1-2 days Chadd Meier MD [STAFF PHYSICIAN] - 1-2 days Time of Disposition: 19:42
[2017-10-27 20:34] VITALS: BP 132/80; PULSE 78; RESP 16; TEMP 98.6
== END 2017-10-27 20:30 | disposition home or self-care (01) ==
LOC: EC 17:54
DX: L73.2 Hidradenitis suppurativa (principal)
CPT/HCPCS: 10060; 87070; 87205; 99283

== ENCOUNTER → 2018-08-04 | Outpatient (CLI) | payer OTHER ==
--- NOTE | 2018-08-04 16:59 | US ---
EXAMINATION TYPE: US transvaginal DATE OF EXAM: 08/04/2018 COMPARISON: NONE CLINICAL HISTORY: R10.31 Right lower quadrant pain. Pt states pelvic pain, no menses since of gabrielle perkins 1 year ago TECHNIQUE: Transvaginal (TV). Transvaginal sonographic images of the pelvis were acquired. Date of LMP: 1 year ago EXAM MEASUREMENTS: Uterus: 7.5 x 4.0 x 4.7 cm Endometrial Stripe: 0.6 cm Right Ovary: 3.6 x 2.4 x 2.8 cm Left Ovary: 3.5 x 1.7 x 3.2 cm 1. Uterus: Anteverted wnl 2. Endometrium: wnl, small 2mm calcification 3. Right Ovary: wnl 4. Left Ovary: wnl 5. Bilateral Adnexa: wnl 6. Posterior cul-de-sac: wnl IMPRESSION: Negative transvaginal pelvic sonogram. No adnexal mass or free fluid.
== END | disposition home or self-care (01) ==
LOC: RADUSWWP 16:23
PROVIDERS: ATTEND Family Medicine
DX: R10.31 Right lower quadrant pain (principal); N91.1 Secondary amenorrhea
CPT/HCPCS: 76830

== ENCOUNTER 2018-09-07 09:25 | Emergency (ER) | payer OTHER ==
[2018-09-07 09:37] VITALS: BP 113/70; PULSE 88; RESP 20; TEMP 98.1
--- NOTE | 2018-09-07 09:54 | ED ---
Skin/Abscess/FB HPI - General Chief complaint: Skin/Abscess/Foreign Body Stated complaint: RT GREAT TO INFECTION Time Seen by Provider: 09/07/18 09:41 Source: patient, RN notes reviewed, old records reviewed Mode of arrival: ambulatory Limitations: no limitations - History of Present Illness Initial comments: Patient is a 23-year-old female who presents to emergency room today with complaints of left great toe infection for the past month. Patient states that she cut her toenails. She reports that she has swelling and pain over the medial aspect of her left great toe. Patient states that she isn't drainage from it. Patient states that she has full range of motion. Denies any other complaints. She is a nondiabetic.Patient denies any recent fever, chills, shortness of breath, chest pain, back pain, abdominal pain, nausea vomiting, numbness or tingling, dysuria or hematuria, constipation or diarrhea, headaches or visual changes, or any other current symptoms - Related Data Home Medications Medication Instructions Recorded Confirmed Ibuprofen [Motrin Ib] 600 mg PO Q6H PRN 10/27/17 10/27/17 Previous Rx's Medication Instructions Recorded Clindamycin Gel [Clindamycin 1 applic TOPICAL BID #60 gram 10/27/17 Phosphate 1% Gel] Mupirocin 2% Oint [Bactroban 2% 1 applic TOPICAL TID #60 gm 10/27/17 Oint] Sulfamethox-Tmp 800-160Mg [Bactrim 2 tab PO Q12HR #40 tab 10/27/17 DS 800-160 mg] Mupirocin 2% Oint [Bactroban 2% 1 applic TOPICAL TID #60 gm 09/07/18 Oint] Sulfamethox-Tmp 800-160Mg [Bactrim 1 tab PO DAILY #20 tab 09/07/18 DS 800-160 mg] Allergies Allergy/AdvReac Type Severity Reaction Status Date / Time No Known Allergies Allergy Verified 09/07/18 09:37 Review of Systems ROS Statement: Those systems with pertinent positive or pertinent negative responses have been documented in the HPI. ROS Other: All systems not noted in ROS Statement are negative. Past Medical History Past Medical History: No Reported History Additional Past Medical History / Comment(s): OB history: 2 previous vaginal deliveries. This is her third . She has had care with me since 10 weeks but has been somewhat noncompliant with her care. She did not get her diabetes screening test done until after 32 weeks and was diagnosed with gestational diabetes. O+, abs neg, Rub Imm, Hep B neg, GBS+. History of Any Multi-Drug Resistant Organisms: None Reported Past Surgical History: No Surgical Hx Reported Past Anesthesia/Blood Transfusion Reactions: No Reported Reaction Past Psychological History: No Psychological Hx Reported Smoking Status: Never smoker Past Alcohol Use History: Occasional Past Drug Use History: None Reported - Past Family History Mother Family Medical History: Thyroid Disorder General Exam - General Exam Comments Initial Comments: 23-year-old female. Alert and oriented. No distress. Limitations: no limitations General appearance: alert, in no apparent distress Head exam: Present: atraumatic, normocephalic, normal inspection Eye exam: Present: normal appearance, PERRL, EOMI. Absent: scleral icterus, conjunctival injection, periorbital swelling ENT exam: Present: normal exam, mucous membranes moist Neck exam: Present: normal inspection. Absent: tenderness, meningismus, lymphadenopathy Respiratory exam: Present: normal lung sounds bilaterally. Absent: respiratory distress, wheezes, rales, rhonchi, stridor Cardiovascular Exam: Present: regular rate, normal rhythm, normal heart sounds. Absent: systolic murmur, diastolic murmur, rubs, gallop, clicks GI/Abdominal exam: Present: soft, normal bowel sounds. Absent: distended, tenderness, guarding, rebound, rigid Extremities exam: Present: normal inspection, full ROM, normal capillary refill. Absent: tenderness, pedal edema, joint swelling, calf tenderness Left Lower Leg exam: Present: normal inspection, full ROM Ankle exam: Present: normal inspection, full ROM Foot/Toe exam: Present: tenderness, swelling, erythema (Patient has tenderness and swelling erythema over the medial great toe. Evidence of ingrown toenail.) . Absent: normal inspection Neurovascular tendon exam: Present: no vascular compromise Gait: observed and normal Back exam: Present: normal inspection Neurological exam: Present: alert Psychiatric exam: Present: normal affect, normal mood Skin exam: Present: warm, dry, intact, normal color. Absent: rash Course Vital Signs 09/07/18 09:35 Temperature 98.1 F Pulse Rate 88 Respiratory 20 Rate Blood Pressure 113/70 O2 Sat by Pulse 99 Oximetry Medical Decision Making - Medical Decision Making 23-year-old female presents today with complaints of left great toe infection. She's had the symptoms for the past month. She has evidence of an ingrown toenail. I used a pair forceps and using blunt dissection to carefully lift the nail up. Some pus was expressed. I discussed the Patient should be put doing warm Epsom salt soaks and have her follow-up with podiatry. Discussed the Patient needs to start cutting her nails so short. Patient agrees to treatment plan will comply. Return parameters were discussed. Disposition Clinical Impression: Ingrown toenail Disposition: HOME SELF-CARE Condition: Good Instructions: Ingrown Nail (ED) Additional Instructions: Patient advised to follow-up with primary care physician. Complete the antibiotics. Patient should do frequent warm soaks of the foot. Return to emergency department if any alarming signs or symptoms occur. Prescriptions: Mupirocin 2% Oint [Bactroban 2% Oint] 1 applic TOPICAL TID #60 gm Sulfamethox-Tmp 800-160Mg [Bactrim DS 800-160 mg] 1 tab PO DAILY #20 tab Is patient prescribed a controlled substance at d/c from ED?: No Referrals: Hayley Mann MD [Primary Care Provider] - 1-2 days Linden Ott DPM [STAFF PHYSICIAN] - 1-2 days Time of Disposition: 09:52
== END 2018-09-07 10:51 | disposition home or self-care (01) ==
LOC: EC 09:25
DX: L60.0 Ingrowing nail (principal)
CPT/HCPCS: 11730; 99283

== ENCOUNTER → 2019-07-11 | Outpatient (CLI) | payer OTHER ==
--- NOTE | 2019-07-11 15:37 | XR ---
Lumbosacral spine HISTORY: Low back pain 5 views of lumbosacral spine Lumbar vertebral bodies show preserved height, alignment, and bone mineralization. No evident spondyl olysis. Disc spaces are remarkable for some mild disc height loss L3-4 and possibly L5-S1. Impression: there may some underlying disc desiccation. Lumbar MRI may be of benefit
== END | disposition home or self-care (01) ==
LOC: RADXRMAIN 15:00
PROVIDERS: ATTEND Family Medicine
DX: M54.5 Low back pain (principal); M79.604 Pain in right leg; M79.605 Pain in left leg
CPT/HCPCS: 72110

== ENCOUNTER → 2020-03-27 | Outpatient (CLI) | payer OTHER ==
[2020-03-27 14:24] LABS: HCT 40.1 % (34.0-46.0); HGB 12.8 gm/dL (11.4-16.0); MCH 28.7 pg (25.0-35.0); MCHC 31.9 g/dL (31.0-37.0); MCV 90.2 fL (80.0-100.0); Mean Platelet Volume 7.4; Platelet Count 275 k/uL (150-450); RBC 4.44 m/uL (3.80-5.40); RDW 13.7 % (11.5-15.5); WBC 8.7 k/uL (3.8-10.6)
[2020-03-27 20:17] LABS: Erythrocyte Sedimentation Rate 24 mm/Hr (0-20)
[2020-03-27 20:41] LABS: Gliadin AB IgA, Deaminated NEGATIVE (NEGATIVE); Gliadin AB IgG, Deaminated NEGATIVE (NEGATIVE)
[2020-03-27 21:03] LABS: African American GFR (CKD) 117.9 (60.0-200.0); Albumin 4.1 g/dL (3.80-4.90); Albumin/Globulin Ratio 1.32 (1.60-3.17); Anion Gap 4.6 mmol/L (4.00-12.00); BUN/Creat Ratio 8.75 Ratio (12.00-20.00); C Reactive Protein 0.6 mg/dL (0.0-0.8); Calcium 9.4 mg/dL (8.7-10.3); Carbon Dioxide 26.4 mmol/L (21.6-31.8); Globulin 3.1 g/dL (1.6-3.3); Non-African American GFR(CKD) 101.8 (60.0-200.0); Potassium 4.6 mmol/L (3.5-5.5); Total Bilirubin 0.4 mg/dL (0.3-1.2); Total Protein 7.2 g/dL (6.2-8.2)
== END | disposition home or self-care (01) ==
LOC: LABWHC1 12:20
PROVIDERS: ATTEND Physician Assistant
DX: R19.7 Diarrhea, unspecified (principal)
CPT/HCPCS: 36415; 80053; 83516; 85027; 85652; 86140

== ENCOUNTER 2020-04-05 19:00 | Emergency (ER) | payer OTHER ==
--- NOTE | 2020-04-05 19:42 | ED ---
General Adult HPI - General Chief complaint: Extremity Injury, Lower Stated complaint: Possible blood clot Time Seen by Provider: 04/05/20 19:06 Source: patient, RN notes reviewed, old records reviewed Mode of arrival: wheelchair Limitations: no limitations - History of Present Illness Initial comments: 24-year-old female patient with no pertinent past medical history presents to the chief complaint of right calf pain. Patient reports that the last 2 days she had muscle cramps in her right calf. Today she is having some pain in the posterior aspect of the right calf. Denies any chest pain or shortness of breath. Patient was seen by her primary care provider for this and had an outpatient d-dimer which is mildly elevated. He instructed her to come to the ER for an ultrasound today as he is unable to order one from his office. Patient is denying any other complaints at this time. Systemic: Pt denies fatigue, fever/chills, rash. Pt denies weakness, night sweats, weight loss. Neuro: Pt denies headache, visual disturbances, syncope or pre-syncope. HEENT: Pt denies ocular discharge or irritation, otalgia, rhinorrhea, pharyngitis or notable lymphadenopathy. Cardiopulmonary: Pt denies chest pain, SOB, heart palpitations, dyspnea on exertion. Abdominal/GI: Pt denies abdominal pain, n/v/d. : Pt denies dysuria, burning w/ urination, frequency/urgency. Denies new onset urinary or bowel incontinence. MSK: Pt denies loss of strength or function in extremities. Neuro: Pt denies new onset weakness, paresthesias. - Related Data Allergies Allergy/AdvReac Type Severity Reaction Status Date / Time No Known Allergies Allergy Verified 04/05/20 20:37 Review of Systems ROS Statement: Those systems with pertinent positive or pertinent negative responses have been documented in the HPI. ROS Other: All systems not noted in ROS Statement are negative. Past Medical History Past Medical History: No Reported History Additional Past Medical History / Comment(s): OB history: 2 previous vaginal deliveries. This is her third . She has had care with me since 10 weeks but has been somewhat noncompliant with her care. She did not get her diabetes screening test done until after 32 weeks and was diagnosed with gestational diabetes. O+, abs neg, Rub Imm, Hep B neg, GBS+. History of Any Multi-Drug Resistant Organisms: None Reported Past Surgical History: No Surgical Hx Reported Past Anesthesia/Blood Transfusion Reactions: No Reported Reaction Past Psychological History: No Psychological Hx Reported Smoking Status: Never smoker Past Alcohol Use History: Occasional Past Drug Use History: None Reported - Past Family History Mother Family Medical History: Thyroid Disorder General Exam - General Exam Comments Initial Comments: Constitutional: NAD, AOX3, Pt has pleasant affect. HEENT: NC/AT, trachea midline, neck supple, no lymphadenopathy. External ears appear normal, without discharge. Mucous membranes moist. Eyes PERRLA, EOM intact. There is no scleral icterus. No pallor noted. Cardiopulmonary: RRR, no murmurs, rubs or gallops, no JVD noted. Lungs CTAB in anterior and posterior martinez. No peripheral edema. Neuro: CN II-XII grossly intact. No nuchal rigidity. No raccon eyes, no caceres sign, no hemotympanum. No cervical spinal tenderness. MSK: Right-sided posterior calf tenderness is present. No left sided tenderness. homans sign positive right sided. Posterior tibialis and radial pulse +2 bilate rally. Sensation intact in upper and lower extremities. Full active ROM in upper and lower extremities, 5/5 stregnth. Limitations: no limitations Course Vital Signs 04/05/20 19:03 Temperature 98.2 F Pulse Rate 66 Respiratory 20 Rate Blood Pressure 116/75 O2 Sat by Pulse 99 Oximetry Medical Decision Making - Medical Decision Making 24-year-old female patient with no pertinent past medical history presents to the chief complaint of right calf pain. Patient reports that the last 2 days she had muscle cramps in her right calf. Today she is having some pain in the posterior aspect of the right calf. Denies any chest pain or shortness of breath. Patient was seen by her primary care provider for this and had an outpatient d-dimer which is mildly elevated. He instructed her to come to the ER for an ultrasound today as he is unable to order one from his office. Patient is denying any other complaints at this time. Patient vital signs are stable, afebrile. Physical exam displayed: Right-sided posterior calf tenderness is present. No left sided tenderness. homans sign positive right sided. Posterior tibialis and radial pulse +2 bilaterally. Sensation intact in upper and lower extremities. Full active ROM in upper and lower extremities, 5/5 stregnth. Ultrasound was negative for DVT. UA is negative for or infection. Patient experiencing muscle strain after cramping. Patient will be advised to avoid vigorous running or training until calf strain resolves. Patient follow up with primary care provider tomorrow and will return to ED if condition worsens in anyway. Case discussed with Dr. Meade. - Lab Data Lab Results 04/05/20 04/05/20 Range/Units 19:41 19:41 Urine Color Yellow Urine Appearance Cloudy H (Clear) Urine pH 6.0 (5.0-8.0) Ur Specific [place] 1.023 (1.001-1.035) Urine Protein Trace H (Negative) Urine Glucose (UA) Negative (Negative) Urine Ketones Negative (Negative) Urine Blood Negative (Negative) Urine Nitrite Negative (Negative) Urine Bilirubin Negative (Negative) Urine Urobilinogen 2.0 (<2.0) mg/dL Ur Leukocyte Esterase Negative (Negative) Urine RBC 1 (0-5) /hpf Urine WBC 2 (0-5) /hpf Ur Squamous Epith Cells 6 H (0-4) /hpf Calcium Oxalate Crystal Occasional H (None) /hpf Urine Mucus Many H (None) /hpf Urine HCG, Qual Not Detected (Not Detectd) Disposition Clinical Impression: Strain of calf muscle Disposition: HOME SELF-CARE Condition: Stable Instructions (If sedation given, give patient instructions): Musculoskeletal Pain (ED) Additional Instructions: Follow up with PCP tomorrow. Recommend avoiding vigorous sprinting or training until muscle is no longer sore. Walking and regular activities is fine. Return to ED if condition worsens. Is patient prescribed a controlled substance at d/c from ED?: No Referrals: Joao Foy [Primary Care Provider] - 1-2 days
[2020-04-05 20:14] LABS: Appearance,Urine Cloudy (Clear); Bilirubin,Urine Negative (Negative); Blood,Urine Negative (Negative); Calcium Oxalate Crystals,Urine Occasional /hpf; Color,Urine Yellow; Glucose,Urine (UA) Negative (Negative); Ketones,Urine Negative (Negative); Leukocyte Esterase,Urine Negative (Negative); Mucus,Urine Many /hpf; Nitrite,Urine Negative (Negative); Protein,Urine Trace (Negative); RBC,Urine 1 /hpf (0-5); Specific Gravity,Urine 1.023 (1.001-1.035); Squamous Epithelial Cell,Urine 6 /hpf (0-4); WBC,Urine 2 /hpf (0-5)
--- NOTE | 2020-04-05 20:26 | US ---
EXAMINATION TYPE: US venous doppler duplex LE RT DATE OF EXAM: 04/05/2020 8:09 PM COMPARISON: NONE CLINICAL HISTORY: RLE pain . Right lower extremity pain x 2 days. No hx of DVT. Patient does not take blood thinners. SIDE PERFORMED: Right TECHNIQUE: The lower extremity deep venous system is examined utilizing real time linear array sonog mariaa with graded compression, doppler sonography and color-flow sonography. VESSELS IMAGED: External Iliac Vein (EIV) Common Femoral Vein Deep Femoral Vein Greater Saphenous Vein * Femoral Vein Popliteal Vein Small Saphenous Vein * Proximal Calf Veins (* superficial vessels) DESCRIPTION: No evidence of DVT in veins imaged at this time from prox calf veins to EIV. Duplicate m id and distal popliteal vein noted. IMPRESSION: NEGATIVE FOR DVT, RIGHT LOWER EXTREMITY.
[2020-04-05 21:03] VITALS: BP 118/78; PULSE 64; RESP 18; TEMP 98.7
== END 2020-04-05 21:00 | disposition home or self-care (01) ==
LOC: EC 19:00
DX: S86.911A Strain of unspecified muscle(s) and tendon(s) at lower leg level, right leg, initial encounter (principal); X58.XXXA Exposure to other specified factors, initial encounter
CPT/HCPCS: 81001; 81025; 99284

== ENCOUNTER → 2020-04-05 | Outpatient (CLI) | payer OTHER | END | disposition home or self-care (01) | LOC: LABWHC1 10:14 | PROVIDERS: ATTEND Family Medicine | DX: M79.661 Pain in right lower leg (principal) | CPT/HCPCS: 36415; 85379 ==

== ENCOUNTER 2020-04-18 10:39 | Emergency (ER) | payer OTHER ==
[2020-04-18 10:52] VITALS: RESP 18; TEMP 98.4
[2020-04-18] MEDS ORDERED: SODIUM CHLORIDE 0.9% 2,000 ML IV STA (11:08)
--- NOTE | 2020-04-18 11:13 | ED ---
General Adult HPI - General Source: patient, RN notes reviewed Mode of arrival: ambulatory Limitations: no limitations <Constantin Wilcox - Last Filed: 04/18/20 12:08> <Charo Cedeno - Last Filed: 04/18/20 22:35> - General Chief complaint: Abdominal Pain Stated complaint: Hot flashes/abd pressure Time Seen by Provider: 04/18/20 10:53 - History of Present Illness Initial comments: 24 year old female without any complicated medical history presents to the emergency department for a chief complaint of diarrhea 5 months. Patient reports that she has had diarrhea on and off for about 5 months now. States she has it about 5 times per day. Denies melena or hematochezia. Patient is also complaining of nausea. States she sometimes vomits when she has diarrhea. Patient states this symptom is more intermittent. She does admit that she has the diarrhea she feels abdominal pressure. Patient did see GI who did lab work and wanted her to follow-up with primary care. Patient denies fevers. Patient denies any symptoms at this time including abdominal pain.Patient has no other complaints at this time including shortness of breath, chest pain, , headache, or visual changes. (Constantin Wilcox) - Related Data Home Medications Medication Instructions Recorded Confirmed Acetaminophen Tab [Tylenol Tab] 500 mg PO TID PRN 04/05/20 04/05/20 Ibuprofen [Motrin] 600 mg PO QID PRN 04/05/20 04/05/20 Allergies Allergy/AdvReac Type Severity Reaction Status Date / Time No Known Allergies Allergy Verified 04/18/20 10:52 Review of Systems ROS Other: All systems not noted in ROS Statement are negative. <Constantin Wilcox - Last Filed: 04/18/20 12:08> ROS Other: All systems not noted in ROS Statement are negative. <Charo Cedeno - Last Filed: 04/18/20 22:35> ROS Statement: Those systems with pertinent positive or pertinent negative responses have been documented in the HPI. Past Medical History Past Medical History: No Reported History Additional Past Medical History / Comment(s): OB history: 2 previous vaginal deliveries. This is her third . She has had care with [facility] since 10 weeks but has been somewhat noncompliant with her care. She did not get her diabetes screening test done until after 32 weeks and was diagnosed with gestational diabetes. O+, abs neg, Rub Imm, Hep B neg, GBS+. History of Any Multi-Drug Resistant Organisms: None Reported Past Surgical History: No Surgical Hx Reported Past Anesthesia/Blood Transfusion Reactions: No Reported Reaction Past Psychological History: No Psychological Hx Reported Smoking Status: Never smoker Past Alcohol Use History: Occasional Past Drug Use History: Marijuana - Past Family History Mother Family Medical History: Thyroid Disorder <Constantin Wilcox - Last Filed: 04/18/20 12:08> General Exam Limitations: no limitations General appearance: alert, in no apparent distress Head exam: Present: atraumatic, normocephalic, normal inspection Eye exam: Present: normal appearance, PERRL, EOMI. Absent: scleral icterus, conjunctival injection, periorbital swelling ENT exam: Present: normal exam, mucous membranes moist Neck exam: Present: normal inspection. Absent: tenderness, meningismus, lymphadenopathy Respiratory exam: Present: normal lung sounds bilaterally. Absent: respiratory distress, wheezes, rales, rhonchi, stridor Cardiovascular Exam: Present: regular rate, normal rhythm, normal heart sounds. Absent: systolic murmur, diastolic murmur, rubs, gallop, clicks GI/Abdominal exam: Present: soft, normal bowel sounds. Absent: distended, tenderness, guarding, rebound, rigid Back exam: Absent: CVA tenderness (R), CVA tenderness (L) Neurological exam: Present: alert <Constantin Wilcox P - Last Filed: 04/18/20 12:08> Course Vital Signs 04/18/20 04/18/20 10:49 12:06 Temperature 98.4 F Pulse Rate 68 69 Respiratory 18 18 Rate Blood Pressure 96/59 108/74 O2 Sat by Pulse 100 98 Oximetry Medical Decision Making - Lab Data Result diagrams: 04/18/20 11:15 04/18/20 11:15 <Constantin Wilcox - Last Filed: 04/18/20 12:08> - Lab Data Result diagrams: 04/18/20 11:15 04/18/20 11:15 <Charo Cedeno - Last Filed: 04/18/20 22:35> - Medical Decision Making Vitals are stable. CBC CMP is unremarkable. Amylase and lipase are within normal limits. Liver enzymes are normal. Urinalysis does not show any obvious evidence of infection. HCG is negative. Patient does not have any symptoms or abdominal tenderness at this time. She is resting comfortably. I did refer patient to general surgery. If she has any worsening symptoms in the meantime she can always return to the emergency room which was discussed with her. (Constantin Wilcox) I was available for consultation in the emergency department. The history and physical exam were done by the midlevel provider. I was consulted for this patients care. I reviewed the case with the midlevel provider and based on their presentation of the patient, I agree with the assessment, medical decision making and plan of care as documented. Chart was dictated using [employer] dictation software. Attempts were made to correct any dictation errors however some typographical errors may persist. Patient was seen during a national state of emergency due to the Covid-19 pandemic. (Charo Cedeno) - Lab Data Lab Results 04/18/20 04/18/20 04/18/20 Range/Units 11:15 11:15 11:15 WBC 7.9 (3.8-10.6) k/uL RBC 4.34 (3.80-5.40) m/uL Hgb 12.6 (11.4-16.0) gm/dL Hct 39.1 (34.0-46.0) % MCV 90.1 (80.0-100.0) fL MCH 29.0 (25.0-35.0) pg MCHC 32.2 (31.0-37.0) g/dL RDW 13.8 (11.5-15.5) % Plt Count 256 (150-450) k/uL Neutrophils % 64 % Lymphocytes % 28 % Monocytes % 3 % Eosinophils % 4 % Basophils % 0 % Neutrophils # 5.0 (1.3-7.7) k/uL Lymphocytes # 2.2 (1.0-4.8) k/uL Monocytes # 0.2 (0-1.0) k/uL Eosinophils # 0.3 (0-0.7) k/uL Basophils # 0.0 (0-0.2) k/uL Sodium (137-145) mmol/L Potassium (3.5-5.1) mmol/L Chloride (98-107) mmol/L Carbon Dioxide (22-30) mmol/L Anion Gap mmol/L BUN (7-17) mg/dL Creatinine (0.52-1.04) mg/dL Est GFR (CKD-EPI)AfAm (>60 ml/min/1.73 sqM) Est GFR (CKD-EPI)NonAf (>60 ml/min/1.73 sqM) Glucose (74-99) mg/dL Calcium (8.4-10.2) mg/dL Total Bilirubin (0.2-1.3) mg/dL AST (14-36) U/L ALT (4-34) U/L Alkaline Phosphatase (38-126) U/L Total Protein (6.3-8.2) g/dL Albumin (3.5-5.0) g/dL Amylase (30-110) U/L Lipase (23-300) U/L Urine Color Yellow Urine Appearance Cloudy H (Clear) Urine pH 5.5 (5.0-8.0) Ur Specific [place] 1.026 (1.001-1.035) Urine Protein 1+ H (Negative) Urine Glucose (UA) Negative (Negative) Urine Ketones Negative (Negative) Urine Blood Negative (Negative) Urine Nitrite Negative (Negative) Urine Bilirubin Negative (Negative) Urine Urobilinogen 2.0 (<2.0) mg/dL Ur Leukocyte Esterase Trace H (Negative) Urine WBC 1 (0-5) /hpf Ur Squamous Epith Cells 8 H (0-4) /hpf Urine Mucus Many H (None) /hpf Urine HCG, Qual Not Detected (Not Detectd) 04/18/20 Range/Units 11:15 WBC (3.8-10.6) k/uL RBC (3.80-5.40) m/uL Hgb (11.4-16.0) gm/dL Hct (34.0-46.0) % MCV (80.0-100.0) fL MCH (25.0-35.0) pg MCHC (31.0-37.0) g/dL RDW (11.5-15.5) % Plt Count (150-450) k/uL Neutrophils % % Lymphocytes % % Monocytes % % Eosinophils % % Basophils % % Neutrophils # (1.3-7.7) k/uL Lymphocytes # (1.0-4.8) k/uL Monocytes # (0-1.0) k/uL Eosinophils # (0-0.7) k/uL Basophils # (0-0.2) k/uL Sodium 138 (137-145) mmol/L Potassium 4.2 (3.5-5.1) mmol/L Chloride 108 H (98-107) mmol/L Carbon Dioxide 24 (22-30) mmol/L Anion Gap 6 mmol/L BUN 7 (7-17) mg/dL Creatinine 0.68 (0.52-1.04) mg/dL Est GFR (CKD-EPI)AfAm >90 (>60 ml/min/1.73 sqM) Est GFR (CKD-EPI)NonAf >90 (>60 ml/min/1.73 sqM) Glucose 114 H (74-99) mg/dL Calcium 9.3 (8.4-10.2) mg/dL Total Bilirubin 0.5 (0.2-1.3) mg/dL AST 20 (14-36) U/L ALT 17 (4-34) U/L Alkaline Phosphatase 69 (38-126) U/L Total Protein 7.4 (6.3-8.2) g/dL Albumin 4.0 (3.5-5.0) g/dL Amylase 48 (30-110) U/L Lipase 87 (23-300) U/L Urine Color Urine Appearance (Clear) Urine pH (5.0-8.0) Ur Specific [place] (1.001-1.035) Urine Protein (Negative) Urine Glucose (UA) (Negative) Urine Ketones (Negative) Urine Blood (Negative) Urine Nitrite (Negative) Urine Bilirubin (Negative) Urine Urobilinogen (<2.0) mg/dL Ur Leukocyte Esterase (Negative) Urine WBC (0-5) /hpf Ur Squamous Epith Cells (0-4) /hpf Urine Mucus (None) /hpf Urine HCG, Qual (Not Detectd) Disposition Is patient prescribed a controlled substance at d/c from ED?: No Time of Disposition: 12:06 <Constantin Wilcox - Last Filed: 04/18/20 12:08> <Charo Cedeno - Last Filed: 04/18/20 22:35> Clinical Impression: Diarrhea, Nausea Disposition: HOME SELF-CARE Condition: Good Instructions (If sedation given, give patient instructions): Acute Diarrhea (ED) Additional Instructions: please follow up with surgeon by calling today for earliest appointment. If you've any worsening symptoms return to the emergency room. You may also follow-up with primary care. Referrals: Joao Foy [Primary Care Provider] - 1-2 days Ashely Otero MD [STAFF PHYSICIAN] - 1-2 days
[2020-04-18 11:34] LABS: Basophils % (A) 0 %; Eosinophils # (A) 0.3 k/uL (0-0.7); Eosinophils % (A) 4 %; HCT 39.1 % (34.0-46.0); HGB 12.6 gm/dL (11.4-16.0); Lymphocytes # (A) 2.2 k/uL (1.0-4.8); Lymphocytes % (A) 28 %; MCHC 32.2 g/dL (31.0-37.0); MCV 90.1 fL (80.0-100.0); Mean Platelet Volume 7.2; Monocytes # (A) 0.2 k/uL (0-1.0); Monocytes % (A) 3 %; Neutrophils % (A) 64 %; Platelet Count 256 k/uL (150-450); RBC 4.34 m/uL (3.80-5.40); RDW 13.8 % (11.5-15.5); WBC 7.9 k/uL (3.8-10.6)
[2020-04-18 11:43] LABS: ALT 17 U/L (4-34); AST 20 U/L (14-36); African American GFR (CKD) >90 (>60 ml/min/1.73 sqM); Alkaline Phosphatase 69 U/L (38-126); Amylase 48 U/L (30-110); Anion Gap 6 mmol/L; Blood Urea Nitrogen 7 mg/dL (7-17); Calcium 9.3 mg/dL (8.4-10.2); Carbon Dioxide 24 mmol/L (22-30); Chloride 108 mmol/L (98-107); Glucose 114 mg/dL (74-99); Non-African American GFR(CKD) >90 (>60 ml/min/1.73 sqM); Potassium 4.2 mmol/L (3.5-5.1); Sodium 138 mmol/L (137-145); Total Bilirubin 0.5 mg/dL (0.2-1.3); Total Protein 7.4 g/dL (6.3-8.2)
[2020-04-18 11:52] LABS: Appearance,Urine Cloudy (Clear); Bilirubin,Urine Negative (Negative); Blood,Urine Negative (Negative); Color,Urine Yellow; Glucose,Urine (UA) Negative (Negative); Ketones,Urine Negative (Negative); Leukocyte Esterase,Urine Trace (Negative); Mucus,Urine Many /hpf; Nitrite,Urine Negative (Negative); PH, Urine 5.5 (5.0-8.0); Protein,Urine 1+ (Negative); Specific Gravity,Urine 1.026 (1.001-1.035); Squamous Epithelial Cell,Urine 8 /hpf (0-4); WBC,Urine 1 /hpf (0-5)
[2020-04-18 12:07] VITALS: BP 108/74; PULSE 69
== END 2020-04-18 12:15 | disposition home or self-care (01) ==
LOC: EC 10:39
DX: R19.7 Diarrhea, unspecified (principal); R11.2 Nausea with vomiting, unspecified
CPT/HCPCS: 36415; 80053; 81001; 81025; 82150; 83690; 85025; 96360; 99284

== ENCOUNTER → 2020-05-31 | Outpatient (CLI) | payer OTHER ==
--- NOTE | 2020-05-31 12:16 | US ---
EXAMINATION TYPE: US gallbladder DATE OF EXAM: 05/31/2020 COMPARISON: NONE CLINICAL HISTORY: K81.0 Acute cholecystitis. ABD pain EXAM MEASUREMENTS: Liver Length: 17.4 cm Gallbladder Wall: 0.3 cm CBD: 0.3 cm Right Kidney: 12.5 x 4.1 x 4.9 cm Pancreas: wnl Liver: Heterogeneous Gallbladder: wnl Evidence for sonographic Stephen's sign: No CBD: wnl Right Kidney: wnl IMPRESSION: Mild fatty liver.
== END | disposition home or self-care (01) ==
LOC: RADUSWWP 10:26
PROVIDERS: ATTEND Surgery Plastic and Reconstructive Surgery
DX: K76.0 Fatty (change of) liver, not elsewhere classified (principal)
CPT/HCPCS: 76705

== ENCOUNTER 2020-06-06 09:57 | Day surgery (SDC) | payer OTHER ==
[2020-06-05 08:33] VITALS: BMI 31.7
--- NOTE | 2020-06-06 06:37 | P.GSHP ---
History of Present Illness H&P Date: 06/06/20 CHIEF COMPLAINT: GERD and change in bowel habits HISTORY OF PRESENT ILLNESS: The patient is a 24-year-old female who presents with gastroesophageal reflux disease and change in bowel habits. Upper and lower endoscopy were offered for further evaluation and management. PAST MEDICAL HISTORY: Please see list. PAST SURGICAL HISTORY: Please see list. MEDICATIONS: Please see list. ALLERGIES: Please see list. SOCIAL HISTORY: No illicit drug use FAMILY HISTORY: No reports of Crohn disease or ulcerative colitis. REVIEW OF ORGAN SYSTEMS: CONSTITUTIONAL: No reports of fevers or chills. PHYSICAL EXAM: VITAL SIGNS: Stable GENERAL: Well-developed pleasant in no acute distress. HEENT: No scleral icterus. Extraocular movements grossly intact. Moist buccal mucosa. NECK: Supple without lymphadenopathy. CHEST: Unlabored respirations. Equal bilateral excursions. CARDIOVASCULAR: Regular rate and rhythm. Distal 2+ pulses. ABDOMEN: Soft, nondistended. MUSCULOSKELETAL: No clubbing, cyanosis, or edema. ASSESSMENT: 1. Gastroesophageal reflux disease 2. Change in bowel habits PLAN: 1. Recommend proceeding with an upper and lower endoscopy Past Medical History Past Medical History: No Reported History Additional Past Medical History / Comment(s): Pain in LUQ, N&V. Gestational Diabetes with preg. History of Any Multi-Drug Resistant Organisms: None Reported Past Surgical History: No Surgical Hx Reported Past Anesthesia/Blood Transfusion Reactions: No Reported Reaction Smoking Status: Never smoker - Past Family History Mother Family Medical History: Thyroid Disorder Medications and Allergies Home Medications Medication Instructions Recorded Confirmed Type Acetaminophen Tab [Tylenol Tab] 500 mg PO TID PRN 04/05/20 06/05/20 History Ibuprofen [Motrin] 600 mg PO QID PRN 04/05/20 06/05/20 History Allergies Allergy/AdvReac Type Severity Reaction Status Date / Time No Known Allergies Allergy Verified 06/05/20 08:29
[~2020-06-06 09:57] MED LIST: LACTATED RINGERS 1,000 ML IV SCH; LIDOCAINE 1% (10MG/ML) FOR IV START INTRADERMA PRN
[2020-06-06 10:55] VITALS: RESP 16; TEMP 98.9
[2020-06-06] MEDS ORDERED: LIDOCAINE 1% INJ 10MG/ML (20 ML MDV) ONE (11:21)
[2020-06-06] MEDS ORDERED: PROPOFOL 10 MG/ML 20 ML VIAL IV ONE (11:21)
[2020-06-06] MEDS ORDERED: MIDAZOLAM 2 MG/2 ML VIAL ONE (11:21)
--- NOTE | 2020-06-06 11:52 | P.OP ---
Date of Procedure: 06/06/20 Description of Procedure: PREOPERATIVE DIAGNOSIS: Change in bowel habits Colitis POSTOPERATIVE DIAGNOSIS: Change in bowel habits Colitis OPERATION: Colonoscopy to the cecum, ileocecal valve and appendiceal orifice with random cold forceps biopsies SURGEON: Ashely Otero MD. ANESTHESIA: MAC. INDICATIONS: The patient is a 24-year-old female who presents with change in bowel habits. Benefits and risks were described and informed consent was obtained. DESCRIPTION OF PROCEDURE: The patient had undergone Suprep. She had been brought into the operating room and laid in the left lateral decubitus position. After adequate intravenous sedation, the rectum was examined with 2% lidocaine jelly. No external hemorrhoids were encountered. The rectal tone was within normal limits. No lesions were palpated in the rectal vault. An Olympus colonoscope was advanced until the cecum, ileocecal valve and appendiceal orifice were clearly viewed. The prep was excellent. No scattered diverticulosis was encountered. No colonic polyps were found. Random biopsy vocal forceps were obtained to look for microscopic colitis. Retroflexion of the scope demonstrated grade 1 internal hemorrhoids without active bleeding or inflammation. The colon was desufflated. The patient had tolerated the procedure well. Withdrawal time was over 6 minutes. FINDINGS: Aronchick preparation quality scale 1 (1-5) Internal hemorrhoids, grade 1 No external prolapsed hemorrhoids. No arteriovenous malformations. No adenomatous polyps. No sigmoid diverticulosis. Random cold forceps biopsies for microscopic colitis RECOMMENDATIONS: Lower endoscopy as needed Plan - Discharge Summary Discharge Rx Participant: Yes New Discharge Prescriptions: New Omeprazole [PriLOSEC] 40 mg PO DAILY #14 cap Continue Ibuprofen [Motrin] 600 mg PO QID PRN PRN Reason: Pain Acetaminophen Tab [Tylenol] 500 mg PO TID PRN PRN Reason: Pain Discharge Medication List Acetaminophen Tab [Tylenol] 500 mg PO TID PRN 04/05/20 [History] Ibuprofen [Motrin] 600 mg PO QID PRN 04/05/20 [History] Omeprazole [PriLOSEC] 40 mg PO DAILY #14 cap 06/06/20 [Rx] Follow up Appointment(s)/Referral(s): Ashely Otero MD [STAFF PHYSICIAN] - 06/26/20 Patient Instructions/Handouts: Gastritis (DC), Diet for Stomach Ulcers and Gastritis (ED), Colonoscopy (DC), *Surgery [facility] - (Anesthesia) Endoscopy Discharge Instructions Activity/Diet/Wound Care/Special Instructions: Lower endoscopy as needed Discharge Disposition: HOME SELF-CARE
--- NOTE | 2020-06-06 11:54 | P.PCN ---
Date of Procedure: 06/06/20 Description of Procedure: PREOPERATIVE DIAGNOSIS: Gastroesophageal reflux disease. Abdominal pain POSTOPERATIVE DIAGNOSIS: Gastroesophageal reflux disease. Abdominal pain Gastritis OPERATION: Esophagogastroduodenoscopy with biopsies along antrum and gastric cardia SURGEON: Ashely Otero MD ANESTHESIA: MAC. INDICATIONS: The patient is a 24-year-old female who presents with a history of gastroesophageal reflux disease and epigastric abdominal pain. Benefits and risks of the procedure were described. Informed consent was obtained. DESCRIPTION: The patient was brought into the endoscopy suite and laid in the left lateral decubitus position. An Olympus gastroscope was passed along the posterior oropharynx down to the distal esophagus where the squamocolumnar junction was encountered at 38 cm from the incisors. The stomach was entered and no bile reflux was found. Additional findings are listed below. Biopsies with cold forceps were obtained of the antrum. The first through third portion of the duodenum was examined and unremarkable. Retroflexion of the scope confirmed Hill grade 3 lower esophageal valve. The squamocolumnar junction demonstrated LA grade A erosive esophagitis. The stomach was desufflated. The patient tolerated the procedure well. FINDINGS: Squamocolumnar junction 38 cm from the incisors. Diaphragmatic hiatus at 38 cm. Hill grade 3 lower esophageal valve. LA grade B erosive esophagitis. No active duodenitis. Chronic gastritis at cardia and antrum RECOMMENDATIONS: Upper endoscopy as needed. Plan - Discharge Summary Discharge Rx Participant: Yes New Discharge Prescriptions: New Omeprazole [PriLOSEC] 40 mg PO DAILY #14 cap Continue Ibuprofen [Motrin] 600 mg PO QID PRN PRN Reason: Pain Acetaminophen Tab [Tylenol] 500 mg PO TID PRN PRN Reason: Pain Discharge Medication List Acetaminophen Tab [Tylenol] 500 mg PO TID PRN 04/05/20 [History] Ibuprofen [Motrin] 600 mg PO QID PRN 04/05/20 [History] Omeprazole [PriLOSEC] 40 mg PO DAILY #14 cap 06/06/20 [Rx] Follow up Appointment(s)/Referral(s): Ashely Otero MD [STAFF PHYSICIAN] - 06/26/20 Patient Instructions/Handouts: *[facility] - (Anesthesia) Endoscopy Discharge Instructions, Gastritis (DC), Diet for Stomach Ulcers and Gastritis (ED), Colonoscopy (DC) Activity/Diet/Wound Care/Special Instructions: Lower endoscopy as needed Discharge Disposition: HOME SELF-CARE
[2020-06-06 12:30] VITALS: BP 100/68; PULSE 63
== END 2020-06-06 13:15 | disposition home or self-care (01) ==
LOC: ORWHC2ENDO 09:57
PROVIDERS: ATTEND Surgery Plastic and Reconstructive Surgery
DX: K29.50 Unspecified chronic gastritis without bleeding (principal); K21.00 Gastro-esophageal reflux disease with esophagitis, without bleeding; K22.10 Ulcer of esophagus without bleeding; K64.0 First degree hemorrhoids; K63.89 Other specified diseases of intestine; Z86.32 Personal history of gestational diabetes; Z83.49 Family history of other endocrine, nutritional and metabolic diseases
CPT/HCPCS: 81025; 88305; 45380; 43239; J2250; J2001; J2704

== ENCOUNTER → 2020-06-07 | Outpatient (CLI) | payer OTHER ==
--- NOTE | 2020-06-07 10:08 | NM ---
EXAMINATION TYPE: NM hepatobiliary w EF DATE OF EXAM: 06/07/2020 COMPARISON: Gallbladder ultrasound 1 week ago. HISTORY: Cholecystitis per order. Patient has symptoms of epigastric pain with diminished appetite al al[place] with reflux nausea and vomiting per patient. TECHNIQUE: After the intravenous administration of 4.8 mCi Tc 99m Mebrofenin hepatobiliary scintigrap hy is performed. Immediate images post injection. FINDINGS: There is satisfactory initial accumulation of tracer by the liver. The gallbladder is visualized wit hin 20 minutes. The small bowel activity is noted within 40 minutes. At one hour 8 ounces of oral e nsure plus is given to mimic CCK and gallbladder ejection fraction is calculated at 68 %, in the norm al range. Therefore there is no scintigraphic evidence of cystic or common bile duct obstruction to suggest acute cholecystitis or gallbladder dyskinesia. IMPRESSION: Exam is within normal limits.
== END | disposition home or self-care (01) ==
LOC: RADNMMAIN 07:06
PROVIDERS: ATTEND Surgery Plastic and Reconstructive Surgery
DX: K81.0 Acute cholecystitis (principal)
CPT/HCPCS: 78226; A9537

== ENCOUNTER 2022-09-20 16:03 | Emergency (ER) | payer OTHER ==
[2022-09-20 16:14] VITALS: TEMP 98
--- NOTE | 2022-09-20 16:33 | ED ---
Female Urogenital HPI - General Chief complaint: Vaginal Bleeding Stated complaint: 9 weeks, cramping and spotting Time Seen by Provider: 09/20/22 16:14 Source: patient, RN notes reviewed Mode of arrival: ambulatory Limitations: no limitations - History of Present Illness Initial comments: This is a 27-year-old female who presents to the emergency department for vaginal bleeding in . Patient is and approximately 9 weeks . Her magnetizer is in [place] and she last saw her one week ago. Her next follow-up appointment is in 3 weeks. She has already had an ultrasound revealing no irregularities. The vaginal spotting started earlier today. She is not passing any clots. She has minor lower abdominal cramping. She has had nausea and vomiting throughout this , but does not believe that it is any worse. She has not had any problems with bleeding in any of her prior pregnancies. Denies any fevers, chills, sore throat, cough, dyspnea, chest pain, palpitations, diarrhea, back pain, or headaches. MD Complaint: vaginal bleeding Patient : Yes Number of weeks : 9 - Related Data Home Medications Medication Instructions Recorded Confirmed Acetaminophen Tab [Tylenol] 500 mg PO TID PRN 04/05/20 06/06/20 Ibuprofen [Motrin] 600 mg PO QID PRN 04/05/20 06/06/20 Previous Rx's Medication Instructions Recorded Omeprazole [PriLOSEC] 40 mg PO DAILY #14 cap 06/06/20 Allergies Allergy/AdvReac Type Severity Reaction Status Date / Time No Known Allergies Allergy Verified 09/20/22 16:14 Review of Systems ROS Statement: Those systems with pertinent positive or pertinent negative responses have been documented in the HPI. ROS Other: All systems not noted in ROS Statement are negative. Past Medical History Past Medical History: No Reported History Additional Past Medical History / Comment(s): OB history: 2 previous vaginal deliveries. This is her third . She has had care with me since 10 weeks but has been somewhat noncompliant with her care. She did not get her diabetes screening test done until after 32 weeks and was diagnosed with ges tational diabetes. O+, abs neg, Rub Imm, Hep B neg, GBS+. History of Any Multi-Drug Resistant Organisms: None Reported Past Surgical History: No Surgical Hx Reported Past Anesthesia/Blood Transfusion Reactions: No Reported Reaction Past Psychological History: No Psychological Hx Reported Past Alcohol Use History: Occasional - Past Family History Mother Family Medical History: Thyroid Disorder General Exam Limitations: no limitations General appearance: alert, in no apparent distress Head exam: Present: atraumatic, normocephalic, normal inspection Respiratory exam: Present: normal lung sounds bilaterally. Absent: respiratory distress, wheezes, rales, rhonchi, stridor Cardiovascular Exam: Present: regular rate, normal rhythm, normal heart sounds. Absent: systolic murmur, diastolic murmur, rubs, gallop, clicks GI/Abdominal exam: Present: normal bowel sounds Neurological exam: Present: alert, oriented X3, CN II-XII intact Psychiatric exam: Present: normal affect, normal mood Skin exam: Present: warm, dry, intact, normal color. Absent: rash Course Vital Signs 09/20/22 09/20/22 09/20/22 16:11 17:13 17:56 Temperature 98.0 F Pulse Rate 81 74 84 Respiratory 16 18 18 Rate Blood Pressure 115/74 116/70 118/72 O2 Sat by Pulse 99 98 98 Oximetry Medical Decision Making - Medical Decision Making This is a 27-year-old female who presents to the emergency department for vaginal bleeding in . Was pt. sent in by a medical professional or institution? @ -No Did you speak to anyone other than the patient for history? @ -None Did you review nursing and triage notes? @ -Agree, accurate with regards to the patient's symptoms. Were old charts reviewed? @ -No Differential Diagnosis? @Differential Vaginal Bleeding: Spontaneous , threatened , molar , ectopic , incompetent cervix, placenta previa, uterine rupture, dysfunctional uterine bleeding, hemorrhage, uterine fibroids, malignancy, coagulopathy, PID, cervicitis, adenomyosis, vaginal trauma, this is not meant to be an all- inclusive list. What testing was considered but not performed? (CT, X-rays, U/S, labs)? Why? @ -None What meds were considered but not given? Why? @ -I offered medication (Zofran or Reglan) for the nausea and Tylenol for the pain, however the patient declined. Did you discuss the management of the patient with other professionals? @ -No Did you reconcile home meds? @ -No Was smoking cessation discussed for >3mins.? @ -No Was critical care preformed (if so, how long)? @ -No Were there social determinants of health that impacted care today? How? (Homelessness, low income, unemployed, alcoholism, drug addiction, transportation, low edu. Level, literacy, decrease access to med. care, penitentiary, rehab)? @ -Hx of noncompliance with care Was there de-escalation of care discussed even if they declined? (Discuss DNR or withdrawal of care, Hospice)? @ -No What co-morbidities impacted this encounter? (DM, HTN, Smoking, COPD, CAD, Cancer, CVA, Hep., AIDS, mental health diagnosis, sleep apnea, morbid obesity)? @ -Obesity Was patient admitted / discharged? @ -Discharged. Lab work obtained and found to be nonactionable. She is RH+ and no RhoGAM is indicated. Obstetrics US is consistent with demise and notes a subchorionic hemorrhage. This was discussed with the patient who expresses understanding. Advised that she will need to contact her magnetizer for lab work to have her hCG levels repeated to ensure that they go all the way down to 0. She is also advised that she may have an increase in bleeding and may also s tart to pass clots. If she gets to the point where she is bleeding through a pad in less than 2 hours or becomes very dizzy, lightheaded, or weak, she is instructed to return to the emergency department immediately to ensure that she is not losing too much blood. Undiagnosed new problem with uncertain prognosis? @ -None Drug Therapy requiring intensive monitoring for toxicity (Heparin, Nitro, Insulin, Cardizem)? @ -None Were any procedures done? @ -None Diagnosis/symptom? @ -Incomplete Acute, or Chronic, or Acute on Chronic? @ -Acute Uncomplicated (without systemic symptoms) or Complicated (systemic symptoms)? @ -Complicated Side effects of treatment? @ -None Exacerbation, Progression, or Severe Exacerbation] @ -Not applicable Poses a threat to life or bodily function? @ -Yes, depending on how heavy the bleeding gets. Return precautions reviewed in depth, the patient is instructed to return to the emergency department with any new, worsening, or concerning symptoms. Patient verbalized understanding. This case was discussed in detail with the attending ED physician, Dr. Olmos. Presentation, findings, and treatment plan discussed in detail as well. - Lab Data Result diagrams: 09/20/22 16:32 09/20/22 16:32 Lab Results 09/20/22 09/20/22 09/20/22 Range/Units 16:32 16:32 16:32 WBC 8.9 (3.8-10.6) k/uL RBC 4.38 (3.80-5.40) m/uL Hgb 12.9 (11.4-16.0) gm/dL Hct 39.5 (34.0-46.0) % MCV 90.2 (80.0-100.0) fL MCH 29.5 (25.0-35.0) pg MCHC 32.7 (31.0-37.0) g/dL RDW 13.1 (11.5-15.5) % Plt Count 227 (150-450) k/uL MPV 8.0 Neutrophils % 67 % Lymphocytes % 26 % Monocytes % 3 % Eosinophils % 2 % Basophils % 0 % Neutrophils # 6.0 (1.3-7.7) k/uL Lymphocytes # 2.3 (1.0-4.8) k/uL Monocytes # 0.3 (0-1.0) k/uL Eosinophils # 0.2 (0-0.7) k/uL Basophils # 0.0 (0-0.2) k/uL PT 10.7 (9.0-12.0) sec INR 1.0 (<1.2) APTT 25.2 (22.0-30.0) sec Sodium (137-145) mmol/L Potassium (3.5-5.1) mmol/L Chloride (98-107) mmol/L Carbon Dioxide (22-30) mmol/L Anion Gap mmol/L BUN (7-17) mg/dL Creatinine (0.52-1.04) mg/dL Est GFR (CKD-EPI)AfAm (>60 ml/min/1.73 sqM) Est GFR (CKD-EPI)NonAf (>60 ml/min/1.73 sqM) Glucose (74-99) mg/dL Calcium (8.4-10.2) mg/dL Total Bilirubin (0.2-1.3) mg/dL AST (14-36) U/L ALT (4-34) U/L Alkaline Phosphatase (38-126) U/L Total Protein (6.3-8.2) g/dL Albumin (3.5-5.0) g/dL HCG, Quant mIU/mL Urine Color Yellow Urine Appearance Cloudy H (Clear) Urine pH 6.0 (5.0-8.0) Ur Specific [place] 1.029 (1.001-1.035) Urine Protein 1+ H (Negative) Urine Glucose (UA) Negative (Negative) Urine Ketones Negative (Negative) Urine Blood Moderate H (Negative) Urine Nitrite Negative (Negative) Urine Bilirubin Negative (Negative) Urine Urobilinogen 2.0 (<2.0) mg/dL Ur Leukocyte Esterase Small H (Negative) Urine RBC 3 (0-5) /hpf Urine WBC 10 H (0-5) /hpf Ur Squamous Epith Cells 5 H (0-4) /hpf Urine Bacteria Rare H (None) /hpf Urine Mucus Many H (None) /hpf Blood Type Blood Type Recheck Bld Type Recheck Status 09/20/22 09/20/22 Range/Units 16:32 16:32 WBC (3.8-10.6) k/uL RBC (3.80-5.40) m/uL Hgb (11.4-16.0) gm/dL Hct (34.0-46.0) % MCV (80.0-100.0) fL MCH (25.0-35.0) pg MCHC (31.0-37.0) g/dL RDW (11.5-15.5) % Plt Count (150-450) k/uL MPV Neutrophils % % Lymphocytes % % Monocytes % % Eosinophils % % Basophils % % Neutrophils # (1.3-7.7) k/uL Lymphocytes # (1.0-4.8) k/uL Monocytes # (0-1.0) k/uL Eosinophils # (0-0.7) k/uL Basophils # (0-0.2) k/uL PT (9.0-12.0) sec INR (<1.2) APTT (22.0-30.0) sec Sodium 141 (137-145) mmol/L Potassium 3.6 (3.5-5.1) mmol/L Chloride 108 H (98-107) mmol/L Carbon Dioxide 27 (22-30) mmol/L Anion Gap 6 mmol/L BUN 5 L (7-17) mg/dL Creatinine 0.65 (0.52-1.04) mg/dL Est GFR (CKD-EPI)AfAm >90 (>60 ml/min/1.73 sqM) Est GFR (CKD-EPI)NonAf >90 (>60 ml/min/1.73 sqM) Glucose 84 (74-99) mg/dL Calcium 9.0 (8.4-10.2) mg/dL Total Bilirubin 0.7 (0.2-1.3) mg/dL AST 17 (14-36) U/L ALT 21 (4-34) U/L Alkaline Phosphatase 56 (38-126) U/L Total Protein 7.5 (6.3-8.2) g/dL Albumin 4.1 (3.5-5.0) g/dL HCG, Quant 3185.0 mIU/mL Urine Color Urine Appearance (Clear) Urine pH (5.0-8.0) Ur Specific [place] (1.001-1.035) Urine Protein (Negative) Urine Glucose (UA) (Negative) Urine Ketones (Negative) Urine Blood (Negative) Urine Nitrite (Negative) Urine Bilirubin (Negative) Urine Urobilinogen (<2.0) mg/dL Ur Leukocyte Esterase (Negative) Urine RBC (0-5) /hpf Urine WBC (0-5) /hpf Ur Squamous Epith Cells (0-4) /hpf Urine Bacteria (None) /hpf Urine Mucus (None) /hpf Blood Type O Positive Blood Type Recheck O Pos Bld Type Recheck Status No - Radiology Data Radiology results: report reviewed, image reviewed Disposition Clinical Impression: Miscarriage Disposition: HOME SELF-CARE Instructions (If sedation given, give patient instructions): Miscarriage (ED) Additional Instructions: Return to the emergency department with any new, worsening, or concerning symptoms. Your current hCG count is 3185. Contact your PASSENGER ATTENDANT to have your hCG count repeated. Do not be surprised if your bleeding increases and you pass clots, however if you are bleeding through a pad in less than 2 hours, that is an indication that you may be bleeding too much and should return to the emergency department. Additionally, If you begin to feel dizzy or lightheaded, return to the emergency department immediately. Is patient prescribed a controlled substance at d/c from ED?: No Referrals: None,Stated [Primary Care Provider] - 1-2 days
[2022-09-20 16:45] LABS: Basophils % (A) 0 %; Eosinophils # (A) 0.2 k/uL (0-0.7); Eosinophils % (A) 2 %; HCT 39.5 % (34.0-46.0); HGB 12.9 gm/dL (11.4-16.0); Lymphocytes # (A) 2.3 k/uL (1.0-4.8); Lymphocytes % (A) 26 %; MCH 29.5 pg (25.0-35.0); MCHC 32.7 g/dL (31.0-37.0); MCV 90.2 fL (80.0-100.0); Monocytes # (A) 0.3 k/uL (0-1.0); Monocytes % (A) 3 %; Neutrophils % (A) 67 %; Platelet Count 227 k/uL (150-450); RBC 4.38 m/uL (3.80-5.40); RDW 13.1 % (11.5-15.5); WBC 8.9 k/uL (3.8-10.6)
[2022-09-20 16:54] LABS: Partial Thromboplastin Time 25.2 sec (22.0-30.0); Prothrombin Time 10.7 sec (9.0-12.0)
[2022-09-20 17:02] LABS: ALT 21 U/L (4-34); AST 17 U/L (14-36); African American GFR (CKD) >90 (>60 ml/min/1.73 sqM); Albumin 4.1 g/dL (3.5-5.0); Alkaline Phosphatase 56 U/L (38-126); Anion Gap 6 mmol/L; Blood Urea Nitrogen 5 mg/dL (7-17); Carbon Dioxide 27 mmol/L (22-30); Chloride 108 mmol/L (98-107); Glucose 84 mg/dL (74-99); Non-African American GFR(CKD) >90 (>60 ml/min/1.73 sqM); Potassium 3.6 mmol/L (3.5-5.1); Sodium 141 mmol/L (137-145); Total Bilirubin 0.7 mg/dL (0.2-1.3); Total Protein 7.5 g/dL (6.3-8.2)
[2022-09-20 17:24] VITALS: RESP 18
--- NOTE | 2022-09-20 17:34 | US ---
EXAMINATION TYPE: Transabdominal DATE OF EXAM: 09/20/2022 5:16 PM COMPARISON: NONE CLINICAL HISTORY: Vaginal bleeding in . EXAM PERFORMED: Transvaginal (TV) and Transabdominal (TA) EXAM MEASUREMENTS: GESTATIONAL AGE / DATING Physician Established: (8 weeks/5 days) EDC: 04/27/2023 Established by first ultrasound Dates by LMP: 06/22/2022 (12 weeks/5 days) EDC: 03/30/2023. LMP not used to date per patient Dates by First Scan: Unknown, outside case Dates by Current Scan for: (8 weeks/5 days) EDC: 04/26/2023 MATERNAL ANATOMY Uterus: wnl Right Ovary: wnl Left Ovary: wnl Post CDS / Adnexa: wnl Presence of free fluid: No Presence of corpus luteal cyst: No Presence of subchorionic bleed: Moderate subchorionic bleed visualized GESTATION / SURVEY CRL: 2.0cm (8 weeks/5 days) MSD: 3.39cm (8 weeks/6 days) Yolk Sac (normal less than 6mm): Not visualized Heart Rate: 0 bpm IUP: No heart tones, suggestive of demise Date of LMP: 06/22/2022 (LMP not used to date exam per patient) Beta HcG (if available): Unavailable IMPRESSION: Ultrasound gestational age is 8 weeks and 5 days. There is subchorionic posterior hemorrhage that ratna sures 4 x 0.6 cm.
[2022-09-20 18:01] VITALS: BP 118/72; PULSE 84
[2022-09-20 18:17] LABS: Appearance,Urine Cloudy (Clear); Bacteria,Urine Rare /hpf; Bilirubin,Urine Negative (Negative); Blood,Urine Moderate (Negative); Color,Urine Yellow; Glucose,Urine (UA) Negative (Negative); Ketones,Urine Negative (Negative); Leukocyte Esterase,Urine Small (Negative); Mucus,Urine Many /hpf; Nitrite,Urine Negative (Negative); Protein,Urine 1+ (Negative); RBC,Urine 3 /hpf (0-5); Specific Gravity,Urine 1.029 (1.001-1.035); Squamous Epithelial Cell,Urine 5 /hpf (0-4); WBC,Urine 10 /hpf (0-5)
== END 2022-09-20 18:43 | disposition home or self-care (01) ==
LOC: EC 16:03
DX: O03.9 Complete or unspecified spontaneous abortion without complication (principal); Z3A.09 9 weeks gestation of pregnancy
CPT/HCPCS: 36415; 76801; 76817; 80053; 81001; 84702; 85025; 85610; 85730; 86900; 86901; 99284

== ENCOUNTER 2023-09-18 11:03 | Emergency (ER) | payer OTHER ==
--- NOTE | 2023-09-18 11:07 | ED ---
Nausea/Vomiting/Diarrhea HPI - General Chief complaint: Nausea/Vomiting/Diarrhea Stated complaint: vomiting,abd pain Time Seen by Provider: 09/18/23 11:05 Source: patient, family, RN notes reviewed Mode of arrival: ambulatory Limitations: no limitations - History of Present Illness Initial comments: This is a 28-year-old female who presents to the emergency department for nausea and vomiting in . Patient is and this morning she started to develop lower abdominal cramping as well as nausea and vomiting. Denies any urinary symptoms or diarrhea/constipation. She just found out that she was and is unsure how far along she is. Denies any vaginal bleeding associated with this. She did not have problems with morning sickness in prior pregnancies. MD complaint: nausea, vomiting - Related Data Home Medications Medication Instructions Recorded Confirmed Acetaminophen Tab [Tylenol] 500 mg PO TID PRN 04/05/20 06/06/20 Ibuprofen [Motrin] 600 mg PO QID PRN 04/05/20 06/06/20 Previous Rx's Medication Instructions Recorded Omeprazole [PriLOSEC] 40 mg PO DAILY #14 cap 06/06/20 Metoclopramide [Reglan] 10 mg PO Q6H PRN #30 tab 09/18/23 Allergies Allergy/AdvReac Type Severity Reaction Status Date / Time No Known Allergies Allergy Verified 09/18/23 11:14 Review of Systems ROS Statement: Those systems with pertinent positive or pertinent negative responses have been documented in the HPI. ROS Other: All systems not noted in ROS Statement are negative. Past Medical History Past Medical History: No Reported History Additional Past Medical History / Comment(s): OB history: 2 previous vaginal deliveries. This is her third . She has had care with nd since 10 weeks but has been somewhat noncompliant with her care. She did not get her diabetes screening test done until after 32 weeks and was diagnosed with gestational diabetes. O+, abs neg, Rub Imm, Hep B neg, GBS+. History of Any Multi-Drug Resistant Organisms: None Reported Past Surgical History: No Surgical Hx Reported Past Anesthesia/Blood Transfusion Reactions: No Reported Reaction Past Psychological History: No Psychological Hx Reported Past Alcohol Use History: Occasional - Past Family History Mother Family Medical History: Thyroid Disorder General Exam - General Exam Comments Initial Comments: Visual Physical Exam Vital signs reviewed General: Well-appearing, nontoxic, no acute distress. Head: Normocephalic, atraumatic Eyes: PERRLA, EOMI ENT: Airway patent Chest: Nonlabored breathing Skin: No visual rash, normal skin tone Neuro: Alert and oriented 3 Musculoskeletal: No gross abnormalities Limitations: no limitations General appearance: alert, in no apparent distress Head exam: Present: atraumatic, normocephalic, normal inspection Respiratory exam: Present: normal lung sounds bilaterally. Absent: respiratory distress, wheezes, rales, rhonchi, stridor Cardiovascular Exam: Present: regular rate, normal rhythm, normal heart sounds. Absent: systolic murmur, diastolic murmur, rubs, gallop, clicks Neurological exam: Present: alert, oriented X3, CN II-XII intact Psychiatric exam: Present: normal affect, normal mood Skin exam: Present: warm, dry, intact, normal color. Absent: rash Course Vital Signs 09/18/23 09/18/23 09/18/23 11:11 11:13 13:13 Temperature 98.1 F Pulse Rate 97 86 68 Respiratory 20 16 16 Rate Blood Pressure 139/85 130/80 130/86 O2 Sat by Pulse 100 98 98 Oximetry 09/18/23 16:31 Temperature Pulse Rate 68 Respiratory 16 Rate Blood Pressure 130/68 O2 Sat by Pulse 98 Oximetry Medical Decision Making - Medical Decision Making This is a 28-year-old female who presents to the emergency department for nausea and vomiting in . Was pt. sent in by a medical professional or institution? @ -No Did you speak to anyone other than the patient for history? @ -No Did you review nursing and triage notes? @ -Yes, and I agree, it is accurate with regards to the patient's symptoms. Were old charts reviewed? @ -No Differential Diagnosis? @ -Differential Nausea and Vomiting: Gastroenteritis, cholecystitis, appendicitis, pancreatitis, migraine, benign positional vertigo, food borne illness, pyelonephritis, irritable bowel syn drome, influenza, Covid, GERD, incarcerated hernia, intestinal obstruction, this is not meant to be an all-inclusive list. EKG interpreted by me (3pts min.)? @ -Not obtained X-rays interpreted by me (1pt min.)? @ -Not obtained CT interpreted by me (1pt min.)? @ -Not obtained U/S interpreted by me (1pt. min.)? @ -OB US obtained. My interpretation identifies a single live IUP. What testing was considered but not performed? (CT, X-rays, U/S, labs)? Why? @ -None What meds were considered but not given? Why? @ -None Did you discuss the management of the patient with other professionals? @ -No Did you reconcile home meds? @ -No Was smoking cessation discussed for >3mins.? @ -No Was critical care preformed (if so, how long)? @ -No Were there social determinants of health that impacted care today? How? (Homelessness, low income, unemployed, alcoholism, drug addiction, transporta tion, low edu. Level, literacy, decrease access to med. care, half-way, rehab)? @ -No Was there de-escalation of care discussed even if they declined? (Discuss DNR or withdrawal of care, Hospice)? @ -No What co-morbidities impacted this encounter? (DM, HTN, Smoking, COPD, CAD, Cancer, CVA, Hep., AIDS, mental health diagnosis, sleep apnea, morbid obesity)? @ - Was patient admitted / discharged? @ -Discharged. Lab work obtained and found to be unremarkable. HCG is 20,862. OB US obtained demonstrating a single live intrauterine measuring approximately 6 weeks. Blood type is O+, however the patient was not experiencing vaginal bleeding. Symptoms were well controlled with IV fluids, Tylenol, vitamin B6, and Reglan. Patient felt stable for discharge home at that point. Prescription for Reglan provided with dosing instructions reviewed. Advised starting with [id number] vitamin B6 and Unisom for the nausea and vomiting, and if that is not effective to proceed with the Reglan. Advised Tylenol as needed for pain relief. She was given information for [facility] follow- up to become established for ongoing obstetrics care. Undiagnosed new problem with uncertain prognosis? @ -None Drug Therapy requiring intensive monitoring for toxicity (Heparin, Nitro, Insulin, Cardizem)? @ -None Were any procedures done? @ -None Diagnosis/symptom? @ -Nausea and vomiting in , Pelvic pain in Acute, or Chronic, or Acute on Chronic? @ -Acute Uncomplicated (without systemic symptoms) or Complicated (systemic symptoms)? @ -Uncomplicated Side effects of treatment? @ -None Exacerbation, Progression, or Severe Exacerbation] @ -Not applicable Poses a threat to life or bodily function? @ -Unlikely Return precautions reviewed in depth, the patient is instructed to return to the emergency department with any new, worsening, or concerning symptoms. Patient verbalized understanding. This case was discussed in detail with the attending ED physician, Dr. Austin. Presentation, findings, and treatment plan discussed in detail as well. - Lab Data Result diagrams: 09/18/23 13:07 09/18/23 13:07 Lab Results 09/18/23 09/18/23 09/18/23 Range/Units 13:07 13:07 13:07 WBC 12.7 H (3.8-10.6) k/uL RBC 4.45 (3.80-5.40) m/uL Hgb 13.3 (11.4-16.0) gm/dL Hct 39.6 (34.0-46.0) % MCV 89.0 (80.0-100.0) fL MCH 29.9 (25.0-35.0) pg MCHC 33.6 (31.0-37.0) g/dL RDW 12.4 (11.5-15.5) % Plt Count 232 (150-450) k/uL MPV 7.3 Neutrophils % 87 % Lymphocytes % 9 % Monocytes % 3 % Eosinophils % 0 % Basophils % 0 % Neutrophils # 11.1 H (1.3-7.7) k/uL Lymphocytes # 1.1 (1.0-4.8) k/uL Monocytes # 0.4 (0-1.0) k/uL Eosinophils # 0.0 (0-0.7) k/uL Basophils # 0.0 (0-0.2) k/uL Sodium 138 (137-145) mmol/L Potassium 4.5 (3.5-5.1) mmol/L Chloride 109 H (98-107) mmol/L Carbon Dioxide 25 (22-30) mmol/L Anion Gap 4 mmol/L BUN 7 (7-17) mg/dL Creatinine 0.54 (0.52-1.04) mg/dL Est GFR (CKD-EPI)AfAm >90 (>60 ml/min/1.73 sqM) Est GFR (CKD-EPI)NonAf >90 (>60 ml/min/1.73 sqM) Glucose 96 (74-99) mg/dL Calcium 9.3 (8.4-10.2) mg/dL Total Bilirubin 0.6 (0.2-1.3) mg/dL AST 150 H (14-36) U/L ALT 62 H (4-34) U/L Alkaline Phosphatase 69 (38-126) U/L Total Protein 7.8 (6.3-8.2) g/dL Albumin 4.2 (3.5-5.0) g/dL HCG, Quant 64886.4 mIU/mL Urine Color Light Yellow Urine Appearance Turbid H (Clear) Urine pH 8.0 (5.0-8.0) Ur Specific Conroy 1.016 (1.001-1.035) Urine Protein Negative (Negative) Urine Glucose (UA) Negative (Negative) Urine Ketones Negative (Negative) Urine Blood Negative (Negative) Urine Nitrite Negative (Negative) Urine Bilirubin Negative (Negative) Urine Urobilinogen <2.0 (<2.0) mg/dL Ur Leukocyte Esterase Negative (Negative) Urine RBC 2 (0-5) /hpf Urine WBC 2 (0-5) /hpf Urine WBC Clumps Rare H (None) /hpf Ur Squamous Epith Cells 1 (0-4) /hpf Urine Bacteria Occasional H (None) /hpf Urine Yeast (Budding) Many H (None) /hpf Blood Type Blood Type Recheck Bld Type Recheck Status 09/18/23 Range/Units 13:07 WBC (3.8-10.6) k/uL RBC (3.80-5.40) m/uL Hgb (11.4-16.0) gm/dL Hct (34.0-46.0) % MCV (80.0-100.0) fL MCH (25.0-35.0) pg MCHC (31.0-37.0) g/dL RDW (11.5-15.5) % Plt Count (150-450) k/uL MPV Neutrophils % % Lymphocytes % % Monocytes % % Eosinophils % % Basophils % % Neutrophils # (1.3-7.7) k/uL Lymphocytes # (1.0-4.8) k/uL Monocytes # (0-1.0) k/uL Eosinophils # (0-0.7) k/uL Basophils # (0-0.2) k/uL Sodium (137-145) mmol/L Potassium (3.5-5.1) mmol/L Chloride (98-107) mmol/L Carbon Dioxide (22-30) mmol/L Anion Gap mmol/L BUN (7-17) mg/dL Creatinine (0.52-1.04) mg/dL Est GFR (CKD-EPI)AfAm (>60 ml/min/1.73 sqM) Est GFR (CKD-EPI)NonAf (>60 ml/min/1.73 sqM) Glucose (74-99) mg/dL Calcium (8.4-10.2) mg/dL Total Bilirubin (0.2-1.3) mg/dL AST (14-36) U/L ALT (4-34) U/L Alkaline Phosphatase (38-126) U/L Total Protein (6.3-8.2) g/dL Albumin (3.5-5.0) g/dL HCG, Quant mIU/mL Urine Color Urine Appearance (Clear) Urine pH (5.0-8.0) Ur Specific Conroy (1.001-1.035) Urine Protein (Negative) Urine Glucose (UA) (Negative) Urine Ketones (Negative) Urine Blood (Negative) Urine Nitrite (Negative) Urine Bilirubin (Negative) Urine Urobilinogen (<2.0) mg/dL Ur Leukocyte Esterase (Negative) Urine RBC (0-5) /hpf Urine WBC (0-5) /hpf Urine WBC Clumps (None) /hpf Ur Squamous Epith Cells (0-4) /hpf Urine Bacteria (None) /hpf Urine Yeast (Budding) (None) /hpf Blood Type O Positive Blood Type Recheck O Pos Bld Type Recheck Status No - Radiology Data Radiology results: report reviewed, image reviewed Disposition Clinical Impression: Pelvic pain affecting , Nausea and vomiting during Disposition: HOME SELF-CARE Instructions (If sedation given, give patient instructions): Nausea and Vomiting in (ED) Additional Instructions: Return to the emergency department with any new, worsening, or concerning symptoms. You can try taking the combination of over the counter vitamin B6 with unisom for management of the nausea and vomiting. You can also take the Reglan prescribed up to every 6 hours. Take Tylenol as needed for pain relief and contact the [facility] office listed below to become established for ongoing obstetrics care. Follow up with your primary care provider in 1-2 days. Prescriptions: Metoclopramide [Reglan] 10 mg PO Q6H PRN #30 tab PRN Reason: Nausea And Vomiting Is patient prescribed a controlled substance at d/c from ED?: No Referrals: None,Stated [Primary Care Provider] - 1-2 days Evon Sandhu DO [Doctor of Osteopathic Medicine] - 1-2 days Time of Disposition: 13:56
[2023-09-18 11:20] VITALS: TEMP 98.1
[2023-09-18] MEDS ORDERED: METOCLOPRAMIDE 5 MG/ML 2 ML VIAL IVP STA (12:30)
[2023-09-18] MEDS ORDERED: SODIUM CHLORIDE 0.9% 1,000 ML IV STA (12:30)
[2023-09-18] MEDS ORDERED: ACETAMINOPHEN TAB 325 MG TAB PO STA (12:41)
[2023-09-18] MEDS ORDERED: PYRIDOXINE 100 MG/ML 1 ML VIAL IVP ONE (12:50)
[2023-09-18 13:38] LABS: Basophils % (A) 0 %; Eosinophils % (A) 0 %; HCT 39.6 % (34.0-46.0); HGB 13.3 gm/dL (11.4-16.0); Lymphocytes # (A) 1.1 k/uL (1.0-4.8); Lymphocytes % (A) 9 %; MCH 29.9 pg (25.0-35.0); MCHC 33.6 g/dL (31.0-37.0); Mean Platelet Volume 7.3; Monocytes # (A) 0.4 k/uL (0-1.0); Monocytes % (A) 3 %; Neutrophils # (A) 11.1 k/uL (1.3-7.7); Neutrophils % (A) 87 %; Platelet Count 232 k/uL (150-450); RBC 4.45 m/uL (3.80-5.40); RDW 12.4 % (11.5-15.5); WBC 12.7 k/uL (3.8-10.6)
[2023-09-18 13:47] LABS: Appearance,Urine Turbid (Clear); Bacteria,Urine Occasional /hpf; Bilirubin,Urine Negative (Negative); Blood,Urine Negative (Negative); Budding Yeast,Urine Many /hpf; Color,Urine Light Yellow; Glucose,Urine (UA) Negative (Negative); Ketones,Urine Negative (Negative); Leukocyte Esterase,Urine Negative (Negative); Nitrite,Urine Negative (Negative); Protein,Urine Negative (Negative); RBC,Urine 2 /hpf (0-5); Specific Gravity,Urine 1.016 (1.001-1.035); Squamous Epithelial Cell,Urine 1 /hpf (0-4); Urobilinogen,Urine <2.0 mg/dL (<2.0); WBC,Urine 2 /hpf (0-5)
[2023-09-18 13:51] LABS: ALT 62 U/L (4-34); AST 150 U/L (14-36); African American GFR (CKD) >90 (>60 ml/min/1.73 sqM); Albumin 4.2 g/dL (3.5-5.0); Alkaline Phosphatase 69 U/L (38-126); Anion Gap 4 mmol/L; Blood Urea Nitrogen 7 mg/dL (7-17); Calcium 9.3 mg/dL (8.4-10.2); Carbon Dioxide 25 mmol/L (22-30); Chloride 109 mmol/L (98-107); Glucose 96 mg/dL (74-99); Non-African American GFR(CKD) >90 (>60 ml/min/1.73 sqM); Potassium 4.5 mmol/L (3.5-5.1); Sodium 138 mmol/L (137-145); Total Bilirubin 0.6 mg/dL (0.2-1.3); Total Protein 7.8 g/dL (6.3-8.2)
[2023-09-18 14:10] VITALS: PULSE 68; RESP 16
[2023-09-18 14:40] LABS: HCG,Quantitative Serum 20862.4 mIU/mL
--- NOTE | 2023-09-18 15:49 | US ---
EXAMINATION TYPE: Transabdominal and transvaginal DATE OF EXAM: 09/18/2023 3:37 PM COMPARISON: NONE CLINICAL INDICATION: Female, 28 years old with history of Pelvic pain in ; cramping and vomi ting x 3 hrs EXAM PERFORMED: Transvaginal (TV) and Transabdominal (TA) EXAM MEASUREMENTS: GESTATIONAL AGE / DATING Physician Established: Not yet established Dates by LMP: LMP unknown Dates by First Scan: No previous this is first scan Dates by Current Scan for: (6 weeks/1 days) EDC: 05/14/2024 MATERNAL ANATOMY Uterus: 11.8x5.6x7.4 Right Ovary: 3.4x2.2x2.4 Left Ovary: 2.7x1.4x2.5 Post CDS / Adnexa: wnl Presence of free fluid: no Presence of corpus luteal cyst: no Presence of subchorionic bleed: no GESTATION / SURVEY CRL: 0.46 (6 weeks/1 days) MSD: 1.3 ( 5 weeks/4 days) Yolk Sac (normal less than 6mm): normal 2mm Heart Rate: 118 bpm Rhythm: Normal IUP: Viable IUP Date of LMP: unknown Beta HcG (if available): 29016.4 mIU/ml exam limited by early gestational age Single live intrauterine gestation as gestational sac, yolk sac, and pole are seen. No free flu id in pelvic cul-de-sac. Both ovaries are seen. No suspicious extraovarian adnexal mass. IMPRESSION: Single live intrauterine gestation is seen. Mean crown-rump length is 0.5 cm correspondin g to 6 week 1 day old fetus.
[2023-09-18] MEDS ORDERED: METOCLOPRAMIDE 10 MG TAB PO STA (15:52)
[2023-09-18 16:54] VITALS: BP 130/68
== END 2023-09-18 16:32 | disposition home or self-care (01) ==
LOC: EC 11:03
DX: O26.891 Other specified pregnancy related conditions, first trimester (principal); R10.2 Pelvic and perineal pain; O21.9 Vomiting of pregnancy, unspecified; Z3A.01 Less than 8 weeks gestation of pregnancy
CPT/HCPCS: 36415; 86900; 86901; 80053; 85025; 81001; 84702; 76801; 76817; 99284; 96374; 96375; 96361; J3415; J2765

== ENCOUNTER 2024-02-12 22:49 | Observation (INO) | payer OTHER ==
--- NOTE | 2024-02-12 23:34 | ED ---
Female Urogenital HPI - General Source: patient, RN notes reviewed Mode of arrival: ambulatory Limitations: no limitations <Ame Puri - Last Filed: 02/13/24 00:23> <Marielena Olivera - Last Filed: 02/13/24 05:36> - General Chief complaint: Vaginal Bleeding Stated complaint: Bleeding, 14 Weeks Time Seen by Provider: 02/12/24 23:02 - History of Present Illness Initial comments: this is a 28 year old female, A2 since emergency department at 14 weeks gestation who presents to the ER with vaginal bleeding. Patient states that vaginal bleeding started approximately 1300 this afternoon with passage of clots as well. Patient is endorsing mild suprapubic abdominal cramping and lightheadedness as well. Patient states that she has not establish care with a OB for this yet and therefore has not received an ultrasound. She is denying any right upper quadrant abdominal pain, dysuria, increase in frequency or urgency. States that she has been using the restroom over the day there have been passage of blood clots. (Ame Puri) 28-year-old G6, P3 female presents to the emergency department for evaluation of vaginal bleeding. Patient states that she believes she is around 14 weeks gestation. Patient reports that she has not received care yet for this . She states that today around 1300 she started having heavy vaginal bleeding. She states that during that time she had been passing clots. She notes that she is going through about 4-5 pads per hour. She does admit to suprapubic discomfort and lightheadedness. While in the emergency department, the patient got up to use the bathroom and had multiple clots in the toilet. She states that she sat back in bed and had about 4 golf ball sized clots. (Marielena Olivera) - Related Data Home Medications Medication Instructions Recorded Confirmed Acetaminophen Tab [Tylenol] 500 mg PO TID PRN 04/05/20 06/06/20 Ibuprofen [Motrin] 600 mg PO QID PRN 04/05/20 06/06/20 Previous Rx's Medication Instructions Recorded Omeprazole [PriLOSEC] 40 mg PO DAILY #14 cap 06/06/20 Metoclopramide [Reglan] 10 mg PO Q6H PRN #30 tab 09/18/23 Allergies Allergy/AdvReac Type Severity Reaction Status Date / Time No Known Allergies Allergy Verified 02/12/24 23:05 Review of Systems ROS Other: All systems not noted in ROS Statement are negative. <VeronicapebblesAme - Last Filed: 02/13/24 00:23> ROS Other: All systems not noted in ROS Statement are negative. <Abhilash Oliverasey - Last Filed: 02/13/24 05:36> ROS Statement: Those systems with pertinent positive or pertinent negative responses have been documented in the HPI. Past Medical History Past Medical History: No Reported History, Cancer Additional Past Medical History / Comment(s): OB history: 3 previous vaginal deliveries,"she has had care with me since 10 weeks but has been somewhat noncompliant with her care. She did not get her diabetes screening test done until after 32 weeks and was diagnosed with gestational diabetes. O+, abs neg, Rub Imm, Hep B neg, GBS+." History of Any Multi-Drug Resistant Organisms: None Reported Past Surgical History: No Surgical Hx Reported Additional Past Surgical History / Comment(s): ovarian biopsy Past Anesthesia/Blood Transfusion Reactions: No Reported Reaction Past Psychological History: No Psychological Hx Reported Smoking Status: Never smoker Past Alcohol Use History: Occasional Past Drug Use History: None Reported - Past Family History Mother Family Medical History: Thyroid Disorder <Ame Puri - Last Filed: 02/13/24 00:23> General Exam Limitations: no limitations General appearance: alert, in no apparent distress Head exam: Present: atraumatic, normocephalic, normal inspection Eye exam: Present: normal appearance, PERRL, EOMI. Absent: scleral icterus, conjunctival injection, periorbital swelling ENT exam: Present: normal exam, mucous membranes moist Neck exam: Present: normal inspection. Absent: tenderness, meningismus, lymphadenopathy Respiratory exam: Present: normal lung sounds bilaterally. Absent: respiratory distress, wheezes, rales, rhonchi, stridor Cardiovascular Exam: Present: regular rate, normal rhythm, normal heart sounds. Absent: systolic murmur, diastolic murmur, rubs, gallop, clicks GI/Abdominal exam: Present: soft, tenderness (suprapubic), normal bowel sounds. Absent: guarding, rebound, rigid Extremities exam: Present: normal inspection, full ROM, normal capillary refill. Absent: tenderness, pedal edema, joint swelling, calf tenderness Back exam: Present: normal inspection Neurological exam: Present: alert, oriented X3, CN II-XII intact Psychiatric exam: Present: normal affect, normal mood Skin exam: Present: warm, dry, intact, normal color. Absent: rash <Ame Puri - Last Filed: 02/13/24 00:23> Limitations: no limitations General appearance: alert, in no apparent distress Head exam: Present: atraumatic, normocephalic, normal inspection Eye exam: Present: normal appearance, PERRL, EOMI. Absent: scleral icterus, conjunctival injection, periorbital swelling ENT exam: Present: normal exam, mucous membranes moist Neck exam: Present: normal inspection. Absent: tenderness, meningismus, lymphadenopathy Respiratory exam: Present: normal lung sounds bilaterally. Absent: respiratory distress, wheezes, rales, rhonchi, stridor Cardiovascular Exam: Present: regular rate, normal rhythm, normal heart sounds. Absent: systolic murmur, diastolic murmur, rubs, gallop, clicks GI/Abdominal exam: Present: soft, tenderness, normal bowel sounds. Absent: distended, guarding, rebound, rigid External exam: Present: normal external exam Speculum exam: Present: vaginal bleeding (clot within vaginal canal) Back exam: Present: normal inspection Neurological exam: Present: alert, oriented X3 Psychiatric exam: Present: normal affect, normal mood Skin exam: Present: warm, dry, intact, normal color. Absent: rash <Marielena Olivera - Last Filed: 02/13/24 05:36> Course Vital Signs 02/12/24 22:59 Temperature 98.2 F Pulse Rate 90 Respiratory 20 Rate Blood Pressure 112/79 O2 Sat by Pulse 100 Oximetry Medical Decision Making <Ame Puri - Last Filed: 02/13/24 00:23> - Lab Data Result diagrams: 02/13/24 00:10 02/13/24 00:10 <Marielena Olivera - Last Filed: 02/13/24 05:36> - Medical Decision Making Was pt. sent in by a medical professional or institution (, PA, MANAGER RELATIONSHIP, urgent care, hospital, or skilled nursing...) When possible be specific @ -[No] Did you speak to anyone other than the patient for history (EMS, parent, family, police, friend...)? What history was obtained from this source @ -[No] Did you review nursing and triage notes (agree or disagree)? Why? @ -[I reviewed and agree with nursing and triage notes] Were old charts reviewed (outside hosp., previous admission, EMS record, old EKG, old radiological studies, urgent care reports/EKG's, skilled nursing records)? Report findings @ -[No old charts were reviewed] Differential Diagnosis (chest pain, altered mental status, abdominal pain women, abdominal pain men, vaginal bleeding, weakness, fever, dyspnea, syncope, headache, dizziness, GI bleed, back pain, seizure, CVA, palpatations, mental health, musculoskeletal)? @ -Differential Vaginal Bleeding: Spontaneous , threatened , molar , ectopic , bloody show, incompetent cervix, abruptioplacenta, placenta previa, uterine rupture, dysfunctional uterine bleeding, hemorrhage, uterine fib roids, this is not meant to be an all-inclusive list. EKG interpreted by me (3pts min.). @ -none X-rays interpreted by me (1pt min.). @ -[None done] CT interpreted by me (1pt min.). @ -[None done] U/S interpreted by me (1pt. min.). @ -[None done] What testing was considered but not performed or refused? (CT, X-rays, U/S, labs)? Why? @ -[None] What meds were considered but not given or refused? Why? @ -[None] Did you discuss the management of the patient with other professionals (professionals i.e. , PA, MANAGER RELATIONSHIP, lab, RT, psych nurse, protective services social worker, project management director, teacher, global chief creative officer, field nurse case manager)? Give summary @ -[No] Was smoking cessation discussed for >3mins.? @ -[No] Was critical care preformed (if so, how long)? @ -[No] Were there social determinants of health that impacted care today? How? (Homelessness, low income, unemployed, alcoholism, drug addiction, transportation, low edu. Level, literacy, decrease access to med. care, usp, rehab)? @ -[No] Was there de-escalation of care discussed even if they declined (Discuss DNR or withdrawal of care, Hospice)? DNR status @ -[No] What co-morbidities impacted this encounter? (DM, HTN, Smoking, COPD, CAD, Cancer, CVA, ARF, Chemo, Hep., AIDS, mental health diagnosis, sleep apnea, morbid obesity)? @ -[None] Was patient admitted / discharged? Hospital course, mention meds given and route, prescriptions, significant lab abnormalities, going to OR and other pertinent info. @ -Is a 28-year-old female at 14 weeks gestation with vaginal bleeding. On examination patient noted to have mild suprapubic tenderness on palpation, no signs of rebound tenderness or rigidity. No right upper quadrant abdominal pain. At this time patient will be evaluated via laboratory studies including CBC, CMP, urinalysis addition to blood type. She will be symptomatically treated with IV fluids. Patient was offered pain medication but she declined at this time. Will undergo a transabdominal and transvaginal ultrasound for further evaluation of the fetus. This case was signed out to my colleague, Marielena Olivera PA-C, at 23:55 pending labs and US results. Undiagnosed new problem with uncertain prognosis? @ -[No] Drug Therapy requiring intensive monitoring for toxicity (Heparin, Nitro, Insulin, Cardizem)? @ -[No] Were any procedures done? @ -[No] Diagnosis/symptom? @ -[default] Acute, or Chronic, or Acute on Chronic? @ -[default] Uncomplicated (without systemic symptoms) or Complicated (systemic symptoms)? @ -[default] Side effects of treatment? @ -[No] Exacerbation, Progression, or Severe Exacerbation? @ -[No] Poses a threat to life or bodily function? How? (Chest pain, USA, SD, pneumonia, PE, COPD, DKA, ARF, appy, cholecystitis, CVA, Diverticulitis, Homicidal, Suicidal, threat to staff... and all critical care pts) @ -[No] (Stieler,Ame) Patient had an episode where she had passed multiple golf ball size clots while in the emergency department. A pelvic exam was performed, there is a clot in the vaginal canal. Cervical os appears closed. Patient is mildly anemic with a hemoglobin of 9.4, labs otherwise stable. Case was discussed with Dr. Kaufman, patient will be observed in labor and deliver with repeat labs. Patient understanding and agreeable with plan. Case discussed with Dr. Winkler (Marielena Olivera) - Lab Data Lab Results 02/13/24 02/13/24 02/13/24 Range/Units 00:02 00:10 00:10 WBC 7.9 (3.8-10.6) k/uL RBC 3.11 L (3.80-5.40) m/uL Hgb 9.4 L (11.4-16.0) gm/dL Hct 27.7 L (34.0-46.0) % MCV 89.0 (80.0-100.0) fL MCH 30.3 (25.0-35.0) pg MCHC 34.0 (31.0-37.0) g/dL RDW 14.6 (11.5-15.5) % Plt Count 199 (150-450) k/uL MPV 7.8 Neutrophils % 62 % Lymphocytes % 29 % Monocytes % 4 % Eosinophils % 3 % Basophils % 0 % Neutrophils # 4.9 (1.3-7.7) k/uL Lymphocytes # 2.3 (1.0-4.8) k/uL Monocytes # 0.4 (0-1.0) k/uL Eosinophils # 0.2 (0-0.7) k/uL Basophils # 0.0 (0-0.2) k/uL PT (10.0-12.5) sec INR (<1.2) APTT (22.0-30.0) sec Sodium 134 L (137-145) mmol/L Potassium 3.7 (3.5-5.1) mmol/L Chloride 106 (98-107) mmol/L Carbon Dioxide 23 (22-30) mmol/L Anion Gap 5 mmol/L BUN 5 L (7-17) mg/dL Creatinine 0.53 (0.52-1.04) mg/dL Est GFR (CKD-EPI)AfAm >90 (>60 ml/min/1.73 sqM) Est GFR (CKD-EPI)NonAf >90 (>60 ml/min/1.73 sqM) Glucose 96 (74-99) mg/dL Calcium 8.6 (8.4-10.2) mg/dL Total Bilirubin 0.5 (0.2-1.3) mg/dL AST 16 (14-36) U/L ALT 16 (4-34) U/L Alkaline Phosphatase 42 (38-126) U/L Total Protein 5.9 L (6.3-8.2) g/dL Albumin 3.2 L (3.5-5.0) g/dL HCG, Quant 81929.8 mIU/mL Urine Color Red Urine Appearance Bloody H (Clear) Urine RBC >182 H (0-5) /hpf Urine WBC 16 H (0-5) /hpf Ur Squamous Epith Cells 2 (0-4) /hpf Urine Bacteria Occasional H (None) /hpf Blood Type Blood Type Recheck Bld Type Recheck Status 02/13/24 02/13/24 Range/Units 00:10 00:10 WBC (3.8-10.6) k/uL RBC (3.80-5.40) m/uL Hgb (11.4-16.0) gm/dL Hct (34.0-46.0) % MCV (80.0-100.0) fL MCH (25.0-35.0) pg MCHC (31.0-37.0) g/dL RDW (11.5-15.5) % Plt Count (150-450) k/uL MPV Neutrophils % % Lymphocytes % % Monocytes % % Eosinophils % % Basophils % % Neutrophils # (1.3-7.7) k/uL Lymphocytes # (1.0-4.8) k/uL Monocytes # (0-1.0) k/uL Eosinophils # (0-0.7) k/uL Basophils # (0-0.2) k/uL PT 10.7 (10.0-12.5) sec INR 1.0 (<1.2) APTT 24.4 (22.0-30.0) sec Sodium (137-145) mmol/L Potassium (3.5-5.1) mmol/L Chloride (98-107) mmol/L Carbon Dioxide (22-30) mmol/L Anion Gap mmol/L BUN (7-17) mg/dL Creatinine (0.52-1.04) mg/dL Est GFR (CKD-EPI)AfAm (>60 ml/min/1.73 sqM) Est GFR (CKD-EPI)NonAf (>60 ml/min/1.73 sqM) Glucose (74-99) mg/dL Calcium (8.4-10.2) mg/dL Total Bilirubin (0.2-1.3) mg/dL AST (14-36) U/L ALT (4-34) U/L Alkaline Phosphatase (38-126) U/L Total Protein (6.3-8.2) g/dL Albumin (3.5-5.0) g/dL HCG, Quant mIU/mL Urine Color Urine Appearance (Clear) Urine RBC (0-5) /hpf Urine WBC (0-5) /hpf Ur Squamous Epith Cells (0-4) /hpf Urine Bacteria (None) /hpf Blood Type O Positive Blood Type Recheck O Pos Bld Type Recheck Status [facility] ONLY Disposition <Ame Puri - Last Filed: 02/13/24 00:23> Is patient prescribed a controlled substance at d/c from ED?: No <Marielena Olivera - Last Filed: 02/13/24 05:36> Clinical Impression: Vaginal bleeding during , 13 weeks gestation of Disposition: ADMITTED IP TO THIS HOSP Condition: Stable Referrals: None,Stated [Primary Care Provider] - 1-2 days
[2024-02-13] MEDS: SODIUM CHLORIDE 0.9% 1,000 ML IV STA (00:17)
[2024-02-13 00:29] LABS: Basophils % (A) 0 %; Eosinophils # (A) 0.2 k/uL (0-0.7); Eosinophils % (A) 3 %; HCT 27.7 % (34.0-46.0); HGB 9.4 gm/dL (11.4-16.0); Lymphocytes # (A) 2.3 k/uL (1.0-4.8); Lymphocytes % (A) 29 %; MCH 30.3 pg (25.0-35.0); Mean Platelet Volume 7.8; Monocytes # (A) 0.4 k/uL (0-1.0); Monocytes % (A) 4 %; Neutrophils # (A) 4.9 k/uL (1.3-7.7); Neutrophils % (A) 62 %; Platelet Count 199 k/uL (150-450); RBC 3.11 m/uL (3.80-5.40); RDW 14.6 % (11.5-15.5); WBC 7.9 k/uL (3.8-10.6)
[2024-02-13 00:39] LABS: ALT 16 U/L (4-34); AST 16 U/L (14-36); African American GFR (CKD) >90 (>60 ml/min/1.73 sqM); Albumin 3.2 g/dL (3.5-5.0); Alkaline Phosphatase 42 U/L (38-126); Anion Gap 5 mmol/L; Blood Urea Nitrogen 5 mg/dL (7-17); Calcium 8.6 mg/dL (8.4-10.2); Carbon Dioxide 23 mmol/L (22-30); Chloride 106 mmol/L (98-107); Glucose 96 mg/dL (74-99); Non-African American GFR(CKD) >90 (>60 ml/min/1.73 sqM); Potassium 3.7 mmol/L (3.5-5.1); Sodium 134 mmol/L (137-145); Total Bilirubin 0.5 mg/dL (0.2-1.3); Total Protein 5.9 g/dL (6.3-8.2)
[2024-02-13 00:45] LABS: Bacteria,Urine Occasional /hpf; RBC,Urine >182 /hpf (0-5); Squamous Epithelial Cell,Urine 2 /hpf (0-4); WBC,Urine 16 /hpf (0-5)
[2024-02-13 00:47] LABS: Partial Thromboplastin Time 24.4 sec (22.0-30.0); Prothrombin Time 10.7 sec (10.0-12.5)
[2024-02-13 00:59] LABS: Appearance,Urine Bloody (Clear); Color,Urine Red
[2024-02-13 02:00] LABS: HCG,Quantitative Serum 69527.8 mIU/mL
--- NOTE | 2024-02-13 02:01 | US ---
EXAM: US First Trimester , Transabdominal CLINICAL HISTORY: ITS.REASON US Reason: vaginal bleeding, 14 weeks. History of miscarriage. LMP: 11/15/2023. Gestational age: 12 weeks 5 days. TECHNIQUE: Real-time transabdominal obstetrical ultrasound of the maternal pelvis and a first trimester with image documentation. COMPARISON: None. FINDINGS: Gestation: One. Chemistry within normal limits. Yolk sac not seen. CRL: 6.3 cm: Gestational age: 12 weeks 6 days. BERENICE: 08/20/2024. heart rate: 170 bpm. Placenta/amniotic fluid: Cannot be adequately evaluated due to the early gestational age. Uterus/cervix: Uterus measures 13.2 x 7.9 x 6.7 cm in size.. No myometrial mass. Ovaries: Left ovary is not seen. Right ovary measures 2.3 x 2.1 x 2.4 cm. Free fluid: No free fluid. . IMPRESSION: Live intrauterine gestation with heart rate 170 bpm. Ultrasound estimated gestational age: 12 weeks 6 days. BERENICE: 08/20/2024. Congruent dates. .
[2024-02-13] MEDS: SODIUM CHLORIDE 0.9% 1,000 ML IV ONE (03:10)
[2024-02-13] MEDS ORDERED: NALOXONE 0.4 MG/ML 1 ML VIAL IV PRN (05:21)
[2024-02-13] MEDS: SODIUM CHLORIDE 0.9% 1,000 ML IV SCH (06:32)
[2024-02-13 08:01] LABS: Basophils % (A) 0 %; Eosinophils # (A) 0.2 k/uL (0-0.7); Eosinophils % (A) 3 %; HCT 27.2 % (34.0-46.0); HGB 8.6 gm/dL (11.4-16.0); Lymphocytes # (A) 1.5 k/uL (1.0-4.8); Lymphocytes % (A) 24 %; MCH 29.1 pg (25.0-35.0); MCHC 31.7 g/dL (31.0-37.0); MCV 91.6 fL (80.0-100.0); Monocytes # (A) 0.2 k/uL (0-1.0); Monocytes % (A) 3 %; Neutrophils # (A) 4.3 k/uL (1.3-7.7); Neutrophils % (A) 69 %; Platelet Count 193 k/uL (150-450); RBC 2.97 m/uL (3.80-5.40); RDW 14.5 % (11.5-15.5); WBC 6.2 k/uL (3.8-10.6)
--- NOTE | 2024-02-13 11:31 | P.HPOB ---
History of Present Illness H&P Date: 02/13/24 Chief Complaint: vaginal bleeding in 28-year-old presented yesterday at 12 weeks and 6 days by ultrasound after having some very heavy Vaginal bleeding. Ultrasound showed a viable at 12 weeks and 6 days with a heart rate of 170. There was no evidence of where the bleeding was coming from. Her bleeding comes and goes mostly of spotting right now she hasn't had any gushes since very early this morning before she came up to labor and delivery when she passed a few more clots. Her hemoglobin did drop 1 g and is now 8.6. I will admit her for observation for the next 24 hours to see that her bleeding subsides. Review of Systems All systems: negative Constitutional: Denies chills, Denies fever Eyes: denies blurred vision, denies pain Ears, nose, mouth and throat: Denies headache, Denies sore throat Cardiovascular: Denies chest pain, Denies shortness of breath Respiratory: Denies cough Gastrointestinal: Denies abdominal pain, Denies diarrhea, Denies nausea, Denies vomiting Genitourinary: Denies dysuria, Denies hematuria Musculoskeletal: Denies myalgias Integumentary: Denies pruritus, Denies rash Neurological: Denies numbness, Denies weakness Psychiatric: Denies anxiety, Denies depression Endocrine: Denies fatigue, Denies weight change Past Medical History Past Medical History: No Reported History, Cancer Additional Past Medical History / Comment(s): OB history: 3 previous vaginal deliveries, History of Any Multi-Drug Resistant Organisms: None Reported Past Surgical History: No Surgical Hx Reported Additional Past Surgical History / Comment(s): ovarian biopsy Past Anesthesia/Blood Transfusion Reactions: No Reported Reaction Past Psychological History: No Psychological Hx Reported Smoking Status: Former smoker Past Alcohol Use History: Occasional Additional Past Alcohol Use History / Comment(s): pt. states she used to smoke THC but stopped about 5 yrs ago Past Drug Use History: Marijuana - Past Family History Mother Family Medical History: Thyroid Disorder Medications and Allergies Home Medications Medication Instructions Recorded Confirmed Type Progesterone, Micronized 200 mg PO DAILY 02/13/24 02/13/24 History [Progesterone] Allergies Allergy/AdvReac Type Severity Reaction Status Date / Time No Known Allergies Allergy Verified 02/12/24 23:05 Exam Osteopathic Statement: *. No significant issues noted on an osteopathic structural exam other than those noted in the History and Physical/Consult. Vital Signs Temp Pulse Pulse Resp BP BP Pulse Ox 02/13/24 11:15 98.2 F 99 17 119/81 100 02/13/24 07:04 16 02/13/24 06:51 98.4 F 85 16 118/76 100 02/13/24 06:23 99.0 F 94 16 108/77 100 02/13/24 04:30 91 16 103/62 100 02/13/24 03:00 90 16 102/67 100 02/13/24 01:00 92 16 108/59 100 02/12/24 22:59 98.2 F 90 20 112/79 100 Intake and Output 02/12/24 02/13/24 02/13/24 22:59 06:59 14:59 Output Total 500 Balance -500 Output: Urine 500 Other: # Voids 1 Weight 100.698 kg 100.698 kg Heart: Regular rate and rhythm Lungs: Clear to auscultation bilaterally Abdomen: Soft, nontender Extremities: Negative Homans sign Results Result Diagrams: 02/13/24 07:47 02/13/24 00:10 Abnormal Lab Results - Last 24 Hours (Table) 02/13/24 02/13/24 02/13/24 Range/Units 00:02 00:10 00:10 RBC 3.11 L (3.80-5.40) m/uL Hgb 9.4 L (11.4-16.0) gm/dL Hct 27.7 L (34.0-46.0) % Sodium 134 L (137-145) mmol/L BUN 5 L (7-17) mg/dL Total Protein 5.9 L (6.3-8.2) g/dL Albumin 3.2 L (3.5-5.0) g/dL Urine Appearance Bloody H (Clear) Urine RBC >182 H (0-5) /hpf Urine WBC 16 H (0-5) /hpf Urine Bacteria Occasional H (None) /hpf 02/13/24 Range/Units 07:47 RBC 2.97 L (3.80-5.40) m/uL Hgb 8.6 L (11.4-16.0) gm/dL Hct 27.2 L (34.0-46.0) % Sodium (137-145) mmol/L BUN (7-17) mg/dL Total Protein (6.3-8.2) g/dL Albumin (3.5-5.0) g/dL Urine Appearance (Clear) Urine RBC (0-5) /hpf Urine WBC (0-5) /hpf Urine Bacteria (None) /hpf Assessment and Plan (1) 13 weeks gestation of Current Visit: Yes Status: Acute Code(s): Z3A.13 - 13 WEEKS GESTATION OF SNOMED Code(s): 35325446 (2) Vaginal bleeding during Current Visit: Yes Status: Acute Code(s): O46.90 - ANTEPARTUM HEMORRHAGE, U NSPECIFIED, UNSPECIFIED TRIMESTER SNOMED Code(s): 47408422186373629 Plan: An. We'll monitor vaginal bleeding 2. CBC tomorrow morning 3. May repeat ultrasound in the morning as well
[2024-02-13] MEDS: ACETAMINOPHEN TAB 325 MG TAB PO PRN (13:18)
[2024-02-13 23:57] VITALS: PULSE 89
[2024-02-14 06:11] LABS: HGB 8.4 gm/dL (11.4-16.0); MCH 29.3 pg (25.0-35.0); MCHC 32.1 g/dL (31.0-37.0); MCV 91.5 fL (80.0-100.0); Mean Platelet Volume 7.4; Platelet Count 194 k/uL (150-450); RBC 2.85 m/uL (3.80-5.40); RDW 14.5 % (11.5-15.5); WBC 7.8 k/uL (3.8-10.6)
--- NOTE | 2024-02-14 10:46 | P.DS ---
Providers Date of admission: 02/13/24 06:02 Expected date of discharge: 02/14/24 Attending physician: Aleena Kaufman Primary care physician: Stated None - Discharge Diagnosis(es) (1) 13 weeks gestation of Current Visit: Yes Status: Acute (2) Vaginal bleeding during Current Visit: Yes Status: Acute Hospital Course: Patient presented at 13 weeks with heavy vaginal bleeding. Baby is still viable. Over the last 24 hours be been keeping her under observation and her bleeding has subsided to spotting now. Otherwise to keep her off work and expressed to her that she can have nothing in the vagina until we get another ultrasound and her bleeding has stopped. She is to follow-up with me in 2 weeks. Patient Condition at Discharge: Stable Plan - Discharge Summary New Discharge Prescriptions: No Action Progesterone, Micronized [Progesterone] 200 mg PO DAILY Discharge Medication List Progesterone, Micronized [Progesterone] 200 mg PO DAILY 02/13/24 [History] Follow up Appointment(s)/Referral(s): None,Stated [Primary Care Provider] - 1-2 days Aleena Kaufman DO [Doctor of Osteopathic Medicine] - 2 Weeks Discharge Disposition: HOME SELF-CARE
[2024-02-14 10:59] VITALS: BP 99/64; RESP 16; TEMP 98.7
== END 2024-02-14 12:50 | disposition home or self-care (01) ==
LOC: EC 22:49 → 4FBP 02-13 06:02
PROVIDERS: ADMIT Obstetrics & Gynecology; ATTEND Obstetrics & Gynecology
DX: O46.92 Antepartum hemorrhage, unspecified, second trimester (principal); Z3A.14 14 weeks gestation of pregnancy
CPT/HCPCS: 96360; 96361; 99285; 36415; 86900; 86901; 80053; 85025; 85027; 85610; 85730; 81001; 84702; 83036; 76801; G0378 ×2

== ENCOUNTER 2024-07-19 10:23 | Outpatient (CLI) | payer OTHER ==
--- NOTE | 2024-07-19 11:42 | US ---
EXAMINATION TYPE: US OB BPP wo non-stress DATE OF EXAM: 07/19/2024 COMPARISON: NONE CLINICAL INDICATION: Female, 29 years old with history of arrhythmia; possible arrhythmia TECHNIQUE: Transabdominal (TA). Scoring by the refrigerator glazier during real-time assessment. FINDINGS: BPP PARAMETERS: PRESENTATION: Vertex LIE: Longitudinal?? HEART RATE: 152 bpm RHYTHM: Normal SANTIAGO: 11.1cm DIAPHRAGM IMAGED: yes BPP SCORIN. Breathin (1 episode of breathing of 30 second duration in 30 minutes of scanning time) 2. Movement: 2 (at least 3 discrete body movements in 30 minutes) 3. Tone: 2 (1 episode of active flexion/extension of limb) 4. SANTIAGO: 2 (SANTIAGO index > 5cm) IMPRESSION: TOTAL SCORE: 8 / 8 [facility], , 07/19/2024 11:40 AM
[2024-07-19 11:43] VITALS: BP 134/86; PULSE 109; RESP 18; TEMP 97
== END 2024-07-19 11:30 | disposition home or self-care (01) ==
LOC: FBPOP 10:23
PROVIDERS: ATTEND Obstetrics & Gynecology
DX: Z87.59 Personal history of other complications of pregnancy, childbirth and the puerperium (principal); Z3A.39 39 weeks gestation of pregnancy
CPT/HCPCS: 59025; 76819; G0463; 99213

== ENCOUNTER 2024-08-16 06:00 | Inpatient (IN) | payer OTHER ==
[2024-08-16] MEDS ORDERED: TERBUTALINE 1 MG/ML VIAL SQ PRN (06:17)
[2024-08-16] MEDS ORDERED: LIDOCAINE 0.5% (PF) 5 MG/ML (50 ML SDV) SQ PRN (06:17)
[2024-08-16] MEDS ORDERED: OXYTOCIN 10 UNIT/ML 1 ML VIAL IM PRN (06:17)
[2024-08-16] MEDS ORDERED: miSOPROStoL 200 MCG TAB PO PRN (06:17)
[2024-08-16] MEDS ORDERED: miSOPROStoL 200 MCG TAB RECTAL PRN (06:17)
[2024-08-16] MEDS ORDERED: TRANEXAMIC 1,000 MG/100ML-NACL 1,000 MG in EMPTY BAG 1 BAG IV PRN (06:17)
[2024-08-16] MEDS ORDERED: METHYLERGONOVINE 0.2 MG/ML 1 ML AMP IM PRN (06:17)
[2024-08-16] MEDS ORDERED: CARBOPROST TROMETHAMINE 250 MCG/ML 1 ML AMP IM PRN (06:17)
[2024-08-16 06:29] LABS: Glucose,Whole Blood 91 mg/dL (70-110)
[2024-08-16] MEDS: LACTATED RINGERS 1,000 ML IV SCH (06:31)
[2024-08-16] MEDS: OXYTOCIN 30 UNITS/500 ML NS 30 UNIT in SALINE 1 500ML.BAG IV SCH (06:31)
--- NOTE | 2024-08-16 07:40 | P.HPOB ---
History of Present Illness H&P Date: 08/16/24 Chief Complaint: induction of labor 29 year old presents for induction of labor. Her cervis is 2-3/60/-3. She is not john. heart tones 135 and category 1. blood sugar this morning was 91. Review of Systems All systems: negative Constitutional: Denies chills, Denies fever Eyes: denies blurred vision, denies pain Ears, nose, mouth and throat: Denies headache, Denies sore throat Cardiovascular: Denies chest pain, Denies shortness of breath Respiratory: Denies cough Gastrointestinal: Denies abdominal pain, Denies diarrhea, Denies nausea, Denies vomiting Genitourinary: Denies dysuria, Denies hematuria Musculoskeletal: Denies myalgias Integumentary: Denies pruritus, Denies rash Neurological: Denies numbness, Denies weakness Psychiatric: Denies anxiety, Denies depression Endocrine: Denies fatigue, Denies weight change Past Medical History Past Medical History: No Reported History Additional Past Medical History / Comment(s): OB history: 3 previous vaginal deliveries, leep procedure. GDM diet controlled and baby had intermittent arrhythmia on NST. History of Any Multi-Drug Resistant Organisms: None Reported Past Surgical History: No Surgical Hx Reported Additional Past Surgical History / Comment(s): ovarian biopsy and leep procedure Past Anesthesia/Blood Transfusion Reactions: No Reported Reaction Past Psychological History: No Psychological Hx Reported Smoking Status: Never smoker Past Drug Use History: None Reported - Past Family History Mother Family Medical History: Thyroid Disorder Medications and Allergies Home Medications Medication Instructions Recorded Confirmed Type Vit No.179/Iron/Folic 1 each PO DAILY 07/19/24 08/16/24 History [ Tablet] Allergies Allergy/AdvReac Type Severity Reaction Status Date / Time No Known Allergies Allergy Verified 08/16/24 06:16 Exam Osteopathic Statement: *. No significant issues noted on an osteopathic stru ctural exam other than those noted in the History and Physical/Consult. Vital Signs Temp Pulse Resp BP Pulse Ox 08/16/24 06:16 97.4 F L 97 16 121/74 97 Intake and Output 08/15/24 08/16/24 08/16/24 22:59 06:59 14:59 Other: Weight 97.976 kg Heart: Regular rate and rhythm Lungs: Clear to auscultation bilaterally Abdomen: Soft, nontender Extremities: Negative Homans sign Assessment and Plan (1) Encounter for induction of labor Current Visit: Yes Status: Acute Code(s): Z34.90 - ENCNTR FOR SUPRVSN OF NORMAL , UNSP, UNSP TRIMESTER SNOMED Code(s): 169539389 (2) Gestational diabetes mellitus, class A1 Current Visit: No Status: Resolved Code(s): O24.410 - GESTATIONAL DIABETES MELLITUS IN , DIET CONTROLLED SNOMED Code(s): 03623343 (3) 39 weeks gestation of Current Visit: Yes Status: Acute Code(s): Z3A.39 - 39 WEEKS GESTATION OF SNOMED Code(s): 50469079 Plan: 1. induction of labor with amniotomy and pitocin 2. anticipate normal vaginal delivery
[2024-08-16 08:19] LABS: Basophils % (A) 0 %; Eosinophils # (A) 0.2 k/uL (0-0.7); Eosinophils % (A) 2 %; HCT 32.5 % (34.0-46.0); HGB 10.7 gm/dL (11.4-16.0); Lymphocytes # (A) 2.1 k/uL (1.0-4.8); Lymphocytes % (A) 26 %; MCH 27.1 pg (25.0-35.0); MCHC 32.8 g/dL (31.0-37.0); MCV 82.7 fL (80.0-100.0); Mean Platelet Volume 8.7; Monocytes # (A) 0.3 k/uL (0-1.0); Monocytes % (A) 4 %; Neutrophils # (A) 5.2 k/uL (1.3-7.7); Neutrophils % (A) 65 %; Platelet Count 206 k/uL (150-450); RBC 3.93 m/uL (3.80-5.40); RDW 15.8 % (11.5-15.5)
[2024-08-16] MEDS ORDERED: ROPIVACAINE 5 MG/ML 30 ML VIAL ONE (11:35)
[2024-08-16] MEDS ORDERED: fentaNYL (PF) 50 MCG/ML 5 ML AMP ONE (11:35)
[2024-08-16] MEDS ORDERED: SODIUM CHLORIDE 0.9% 250 ML BAG ONE (11:35)
[2024-08-16] MEDS ORDERED: HYDROCORTISONE 2.5% RECTAL CREAM 30 GM TUBE RECTAL PRN (17:58)
[2024-08-16] MEDS ORDERED: diphenhydrAMINE 25 MG CAP PO PRN (17:58)
[2024-08-16] MEDS ORDERED: diphenhydrAMINE 50 MG CAP PO PRN (17:58)
[2024-08-16] MEDS ORDERED: ZOLPIDEM 5 MG TAB PO PRN (17:58)
[2024-08-16] MEDS ORDERED: LANOLIN CREAM 1 GM TUBE TOPICAL PRN (17:58)
[2024-08-16] MEDS ORDERED: SIMETHICONE 80 MG CHEWABLE PO PRN (17:58)
[2024-08-16] MEDS ORDERED: BENZOCAINE/MENTHOL SPRAY 1 GM/SPRAY AEROSOL TOPICAL PRN (17:58)
[2024-08-16] MEDS ORDERED: diphenhydrAMINE 50 MG/ML 1 ML VIAL IVP PRN ×2 (17:58)
[2024-08-17] MEDS: SENNOSIDES-DOCUSATE SODIUM 1 EACH TAB PO SCH (00:34)
[2024-08-17] MEDS: IBUPROFEN 800 MG TAB PO SCH (00:35)
--- NOTE | 2024-08-17 06:06 | P.PROBDLV ---
Vaginal Delivery Note - . Vaginal Delivery Note: 29 year old presents for induction of labor. Her cervis is 2-3/60/-3. She is not john. heart tones 135 and category 1. blood sugar this morning was 91. Pitocin was started and amniotomy performed at 7:29 AM, clear fluid noted. When patient was uncomfortable she did get an epidural. Her cervix was completely dilated at 1647. She pushed, delivered a viable female infant over intact perineum under epidural anesthesia at 1650. Head delivered OA, anterior shoulder delivered gentle downward guidance. The posterior shoulder and rest of body. Nose and mouth bulb suctioned, cord clamped and cut, infant placed mother's abdomen. Apgars 9, 9, weight 8 lbs. 1 oz. Placenta delivered spontaneously, intact with three-vessel cord at 1653. Vagina, cervix, and perineum were inspected. No lacerations noted. Estimated blood loss 200 mL. Mother and baby in stable condition.
--- NOTE | 2024-08-17 06:09 | P.DS ---
Providers Date of admission: 08/16/24 06:00 Expected date of discharge: 08/17/24 Attending physician: Aleena Kaufman Primary care physician: Stated None - Discharge Diagnosis(es) (1) Encounter for induction of labor Current Visit: Yes Status: Resolved (2) Gestational diabetes mellitus, class A1 Current Visit: No Status: Resolved (3) 39 weeks gestation of Current Visit: Yes Status: Resolved (4) Normal vaginal delivery Current Visit: No Status: Acute Hospital Course: She presented for induction of labor. She underwent a normal vaginal delivery. course was benign uneventful. She denies nausea, vomiting, chest pain, shortness of breath or calf pain. Patient will be discharged home day #1 in stable condition to follow-up with me in 6 weeks. Plan - Discharge Summary New Discharge Prescriptions: New RX: Ibuprofen [Motrin] 800 mg PO Q8HR #30 tab No Action Vit No.179/Iron/Folic [ Tablet] 1 each PO DAILY Discharge Medication List Vit No.179/Iron/Folic [ Tablet] 1 each PO DAILY 07/19/24 [History] RX: Ibuprofen [Motrin] 800 mg PO Q8HR #30 tab 08/17/24 [Rx] Follow up Appointment(s)/Referral(s): Aleena Kaufman DO [Doctor of Osteopathic Medicine] - 09/27/24 1:15 pm Discharge Disposition: HOME SELF-CARE
[2024-08-17 06:23] LABS: Basophils % (A) 0 %; Eosinophils # (A) 0.2 k/uL (0-0.7); Eosinophils % (A) 2 %; HCT 31.6 % (34.0-46.0); HGB 10.3 gm/dL (11.4-16.0); Hypochromasia Slight; Lymphocytes # (A) 2.1 k/uL (1.0-4.8); Lymphocytes % (A) 24 %; MCH 27.1 pg (25.0-35.0); MCHC 32.6 g/dL (31.0-37.0); MCV 83.1 fL (80.0-100.0); Mean Platelet Volume 7.9; Monocytes # (A) 0.3 k/uL (0-1.0); Monocytes % (A) 4 %; Neutrophils # (A) 6.1 k/uL (1.3-7.7); Neutrophils % (A) 68 %; Platelet Count 185 k/uL (150-450); RDW 15.6 % (11.5-15.5); WBC 8.9 k/uL (3.8-10.6)
[2024-08-17] MEDS: ACETAMINOPHEN TAB 500 MG TAB PO SCH (07:46)
[2024-08-17 08:13] VITALS: RESP 16
[2024-08-17 16:27] VITALS: BP 133/78; PULSE 86; TEMP 98.1
== END 2024-08-17 17:30 | disposition home or self-care (01) | DRG 560 ==
LOC: 4FBP 06:00
PROVIDERS: ADMIT Obstetrics & Gynecology; ATTEND Obstetrics & Gynecology
PROC: 10E0XZZ Delivery of Products of Conception, External Approach (ICD-10-PCS; principal; 2024-08-16)
PROC: 10907ZC Drainage of Amniotic Fluid, Therapeutic from Products of Conception, Via Natural or Artificial Opening (ICD-10-PCS; 2024-08-16)
PROC: 3E033VJ Introduction of Other Hormone into Peripheral Vein, Percutaneous Approach (ICD-10-PCS; 2024-08-16)
DX: O24.420 Gestational diabetes mellitus in childbirth, diet controlled (principal); Z37.0 Single live birth; Z3A.39 39 weeks gestation of pregnancy
CPT/HCPCS: 85025; 86850; 86900; 86901

== ENCOUNTER 2024-08-20 22:40 | Emergency (ER) | payer OTHER ==
--- NOTE | 2024-08-20 22:49 | ED ---
Recheck HPI - General Stated Complaint: 4 Days PP pain Time Seen by Provider: 08/20/24 22:47 Source: RN notes reviewed, old records reviewed Mode of arrival: ambulatory Limitations: no limitations - History of Present Illness Initial Comments: This is a 29-year-old female to the ER for evaluation. Patient presents today for evaluation regards to significant vaginal bleeding after delivery patient has significant hemorrhage and does look like she passed tissue MD Complaint: other (Vaginal bleeding) Symptoms Since Prior Visit: no new symptoms Context: called for abnormal lab result Associated Symptoms: none Treatments Prior to Arrival: other (0) - Related Data Home Medications Medication Instructions Recorded Confirmed Vit No.179/Iron/Folic 1 each PO DAILY 07/19/24 08/16/24 [ Tablet] Previous Rx's Medication Instructions Recorded Ibuprofen [Motrin] 800 mg PO Q8HR #30 tab 08/17/24 Allergies Allergy/AdvReac Type Severity Reaction Status Date / Time No Known Allergies Allergy Verified 08/16/24 06:16 Review of Systems ROS Statement: Those systems with pertinent positive or pertinent negative responses have been documented in the HPI. ROS Other: All systems not noted in ROS Statement are negative. Past Medical History Past Medical History: No Reported History Additional Past Medical History / Comment(s): OB history: 3 previous vaginal deliveries, leep procedure. GDM diet controlled and baby had intermittent arrhythmia on NST. History of Any Multi-Drug Resistant Organisms: None Reported Past Surgical History: No Surgical Hx Reported Additional Past Surgical History / Comment(s): ovarian biopsy and leep procedure Past Anesthesia/Blood Transfusion Reactions: No Reported Reaction Past Psychological History: No Psychological Hx Reported Smoking Status: Never smoker Past Drug Use History: None Reported - Past Family History Mother Family Medical History: Thyroid Disorder General Exam General appearance: alert, in no apparent distress Head exam: Present: atraumatic, normocephalic, normal inspection Eye exam: Present: normal appearance, PERRL, EOMI. Absent: scleral icterus, conjunctival injection, periorbital swelling ENT exam: Present: normal exam, mucous membranes moist Neck exam: Present: normal inspection. Absent: tenderness, meningismus, lymphadenopathy Respiratory exam: Present: normal lung sounds bilaterally. Absent: respiratory distress, wheezes, rales, rhonchi, stridor Cardiovascular Exam: Present: regular rate, normal rhythm, normal heart sounds. Absent: systolic murmur, diastolic murmur, rubs, gallop, clicks GI/Abdominal exam: Present: soft, normal bowel sounds. Absent: distended, tend erness, guarding, rebound, rigid Extremities exam: Present: normal inspection, full ROM, normal capillary refill. Absent: tenderness, pedal edema, joint swelling, calf tenderness Back exam: Present: normal inspection Neurological exam: Present: alert, oriented X3, CN II-XII intact Psychiatric exam: Present: normal affect, normal mood Skin exam: Present: warm, dry, intact, normal color. Absent: rash Course Vital Signs 08/20/24 08/21/24 22:46 04:03 Temperature 99.0 F Pulse Rate 92 70 Respiratory 18 18 Rate Blood Pressure 134/87 125/82 O2 Sat by Pulse 100 100 Oximetry - Reevaluation(s) Reevaluation #1: 08/20/24 22:50 Medical records reviewed Reevaluation #2: 08/21/24 02:24 Has no significant bleeding here in the ER Reevaluation #3: 08/21/24 02:24 Informed of results and questions answered Reevaluation #4: Was pt. sent in by a medical professional or institution (, PA, ROLLED MATERIALS WORKER, urgent care, hospital, or senior living...) When possible be specific @ -no Did you speak to anyone other than the patient for history (EMS, parent, family, police, friend...)? What history was obtained from this source @ -no Did you review nursing and triage notes (agree or disagree)? Why? @ -agree Are old charts reviewed (outside hosp., previous admission, EMS record, old EKG, old radiological studies, urgent care reports/EKG's, senior living records)? Report findings @ -yes Differential Diagnosis (chest pain, altered mental status, abdominal pain women, abdominal pain men, vaginal bleeding, weakness, fever, dyspnea, syncope, headache, dizziness, GI bleed, back pain, seizure, CVA, palpatations, mental health, musculoskeletal)? @ -prior EKG interpreted by me (3pts min.). @ -yes X-rays interpreted by me (1pt min.). @ -no CT interpreted by me (1pt min.). @ -no U/S interpreted by me (1pt. min.). @ -yes negative for acute disease What testing was considered but not performed or refused? (CT, X-rays, U/S, labs)? Why? @ -none What meds were considered but not given or refused? Why? @ -none Did you discuss the management of the patient with other professionals (professionals i.e. , PA, ROLLED MATERIALS WORKER, lab, RT, psych nurse, social contact worker, home housekeeper, teacher, ict customer support officer, manager rn case)? Give summary @ -no Was smoking cessation discussed for >3mins.? @ -no Was critical care preformed (if so, how long)? @ -no Were there social determinants of health that impacted care today? How? (Homelessness, low income, unemployed, alcoholism, drug addiction, transportation, low edu. Level, literacy, decrease access to med. care, [facility], rehab)? @ -none Was there de-escalation of care discussed even if they declined (Discuss DNR or withdrawal of care, Hospice)? DNR status @ -no What co-morbidities impacted this encounter? (DM, HTN, Smoking, COPD, CAD, Cancer, CVA, ARF, Chemo, Hep., AIDS, mental health diagnosis, sleep apnea, morbid obesity)? @ -none Was patient admitted / discharged? Hospital course, mention meds given and route, prescriptions, significant lab abnormalities, going to OR and other pertinent info. @ - 29 female to ER with hemorrhage. Patient having bleeding after delivery does look like she passed tissue bleeding is currently stopped on arrival to the ER. Discharged Undiagnosed new problem with uncertain prognosis? @ -no Drug Therapy requiring intensive monitoring for toxicity (Heparin, Nitro, Insulin, Cardizem)? @ -no Were any procedures done? @ -no Diagnosis/symptom? @ - hemorrhage Acute, or Chronic, or Acute on Chronic? @ -Acute Uncomplicated (without systemic symptoms) or Complicated (systemic symptoms)? @ -Complicated Side effects of treatment? @ -no Exacerbation, Progression, or Severe Exacerbation? @ -exacerbation Poses a threat to life or bodily function? How? (Chest pain, [place], [place], pneumonia, PE, COPD, DKA, ARF, appy, cholecystitis, CVA, Diverticulitis, Homicidal, Suicidal, threat to staff... and all critical care pts) @ -yes significant bleeding Reevaluation #5: Differential Abdominal Pain Women: Appendicitis, Cholecystitis, diverticulosis, ischemic bowel, pancreatitis, hepatitis, UTI, gastroenteritis, AAA, incarcerated hernia, bowel obstruction, c onstipation, inflammatory bowel, hepatitis, peptic ulcer disease, splenic infarction, perforated viscus, vulvitis, ovarian torsion, PID, kidney stone, placenta abruption, this is not meant to be an all-inclusive list Medical Decision Making - Medical Decision Making 29 female to ER with hemorrhage. Patient having bleeding after delivery does look like she passed tissue bleeding is currently stopped on arrival to the ER. - Lab Data Result diagrams: 08/20/24 23:05 08/20/24 23:05 Lab Results 08/20/24 08/20/24 08/20/24 Range/Units 22:59 23:05 23:05 WBC 9.3 (3.8-10.6) k/uL RBC 4.12 (3.80-5.40) m/uL Hgb 11.4 (11.4-16.0) gm/dL Hct 34.4 (34.0-46.0) % MCV 83.6 (80.0-100.0) fL MCH 27.8 (25.0-35.0) pg MCHC 33.2 (31.0-37.0) g/dL RDW 15.6 H (11.5-15.5) % Plt Count 284 (150-450) k/uL MPV 7.2 Neutrophils % 69 % Lymphocytes % 22 % Monocytes % 3 % Eosinophils % 4 % Basophils % 0 % Neutrophils # 6.4 (1.3-7.7) k/uL Lymphocytes # 2.1 (1.0-4.8) k/uL Monocytes # 0.3 (0-1.0) k/uL Eosinophils # 0.4 (0-0.7) k/uL Basophils # 0.0 (0-0.2) k/uL Hypochromasia Slight PT 10.3 (10.0-12.5) sec INR 0.9 (<1.2) APTT 24.1 (22.0-30.0) sec Sodium (137-145) mmol/L Potassium (3.5-5.1) mmol/L Chloride (98-107) mmol/L Carbon Dioxide (22-30) mmol/L Anion Gap mmol/L BUN (7-17) mg/dL Creatinine (0.52-1.04) mg/dL Est GFR (CKD-EPI)AfAm (>60 ml/min/1.73 sqM) Est GFR (CKD-EPI)NonAf (>60 ml/min/1.73 sqM) Glucose (74-99) mg/dL Plasma Lactic Acid Jb (0.7-2.0) mmol/L Calcium (8.4-10.2) mg/dL Phosphorus (2.5-4.5) mg/dL Magnesium (1.6-2.3) mg/dL Total Bilirubin (0.2-1.3) mg/dL AST (14-36) U/L ALT (4-34) U/L Alkaline Phosphatase (38-126) U/L Total Protein (6.3-8.2) g/dL Albumin (3.5-5.0) g/dL Urine Color Urine Appearance (Clear) Urine pH (5.0-8.0) Ur Specific Becker (1.001-1.035) Urine Protein (Negative) Urine Glucose (UA) (Negative) Urine Ketones (Negative) Urine Blood (Negative) Urine Nitrite (Negative) Urine Bilirubin (Negative) Urine Urobilinogen (<2.0) mg/dL Ur Leukocyte Esterase (Negative) Urine RBC (0-5) /hpf Urine WBC (0-5) /hpf Ur Squamous Epith Cells (0-4) /hpf Urine Bacteria (None) /hpf Urine Mucus (None) /hpf Blood Type O Positive Blood Type Recheck O Pos Bld Type Recheck Status No Antibody Screen NEGATIVE Spec Expiration Date 08/23/2024 - 235808/20/24 08/20/24 08/21/24 Range/Units 23:05 23:05 01:10 WBC (3.8-10.6) k/uL RBC (3.80-5.40) m/uL Hgb (11.4-16.0) gm/dL Hct (34.0-46.0) % MCV (80.0-100.0) fL MCH (25.0-35.0) pg MCHC (31.0-37.0) g/dL RDW (11.5-15.5) % Plt Count (150-450) k/uL MPV Neutrophils % % Lymphocytes % % Monocytes % % Eosinophils % % Basophils % % Neutrophils # (1.3-7.7) k/uL Lymphocytes # (1.0-4.8) k/uL Monocytes # (0-1.0) k/uL Eosinophils # (0-0.7) k/uL Basophils # (0-0.2) k/uL Hypochromasia PT (10.0-12.5) sec INR (<1.2) APTT (22.0-30.0) sec Sodium 137 (137-145) mmol/L Potassium 3.8 (3.5-5.1) mmol/L Chloride 109 H (98-107) mmol/L Carbon Dioxide 22 (22-30) mmol/L Anion Gap 6 mmol/L BUN 8 (7-17) mg/dL Creatinine 0.59 (0.52-1.04) mg/dL Est GFR (CKD-EPI)AfAm >90 (>60 ml/min/1.73 sqM) Est GFR (CKD-EPI)NonAf >90 (>60 ml/min/1.73 sqM) Glucose 98 (74-99) mg/dL Plasma Lactic Acid Jb 1.5 (0.7-2.0) mmol/L Calcium 9.4 (8.4-10.2) mg/dL Phosphorus 4.5 (2.5-4.5) mg/dL Magnesium 1.9 (1.6-2.3) mg/dL Total Bilirubin 0.5 (0.2-1.3) mg/dL AST 29 (14-36) U/L ALT 23 (4-34) U/L Alkaline Phosphatase 127 H (38-126) U/L Total Protein 7.0 (6.3-8.2) g/dL Albumin 3.5 (3.5-5.0) g/dL Urine Color Yellow Urine Appearance Cloudy H (Clear) Urine pH 5.5 (5.0-8.0) Ur Specific Becker 1.018 (1.001-1.035) Urine Protein Trace H (Negative) Urine Glucose (UA) Negative (Negative) Urine Ketones Negative (Negative) Urine Blood Large H (Negative) Urine Nitrite Negative (Negative) Urine Bilirubin Negative (Negative) Urine Urobilinogen <2.0 (<2.0) mg/dL Ur Leukocyte Esterase Moderate H (Negative) Urine RBC >182 H (0-5) /hpf Urine WBC 64 H (0-5) /hpf Ur Squamous Epith Cells 2 (0-4) /hpf Urine Bacteria Rare H (None) /hpf Urine Mucus Many H (None) /hpf Blood Type Blood Type Recheck Bld Type Recheck Status Antibody Screen Spec Expiration Date - EKG Data -: EKG Interpreted by Me (EKG sinus 91 TX 142 QRS 90 QTc 400) - Radiology Data Radiology results: report reviewed (Ultrasound is negative for acute disease), image reviewed Disposition Clinical Impression: Dysfunctional uterine bleeding, hemorrhage Disposition: HOME SELF-CARE Condition: Good Instructions (If sedation given, give patient instructions): Dysmenorrhea (ED) Is patient prescribed a controlled substance at d/c from ED?: No Referrals: None,Stated [Primary Care Provider] - 1-2 days
[2024-08-20 22:52] VITALS: RESP 18; TEMP 99
[2024-08-20 23:15] LABS: Basophils % (A) 0 %; Eosinophils # (A) 0.4 k/uL (0-0.7); Eosinophils % (A) 4 %; HCT 34.4 % (34.0-46.0); HGB 11.4 gm/dL (11.4-16.0); Hypochromasia Slight; Lymphocytes # (A) 2.1 k/uL (1.0-4.8); Lymphocytes % (A) 22 %; MCH 27.8 pg (25.0-35.0); MCHC 33.2 g/dL (31.0-37.0); MCV 83.6 fL (80.0-100.0); Mean Platelet Volume 7.2; Monocytes # (A) 0.3 k/uL (0-1.0); Monocytes % (A) 3 %; Neutrophils # (A) 6.4 k/uL (1.3-7.7); Neutrophils % (A) 69 %; Platelet Count 284 k/uL (150-450); RBC 4.12 m/uL (3.80-5.40); RDW 15.6 % (11.5-15.5); WBC 9.3 k/uL (3.8-10.6)
[2024-08-20 23:27] LABS: INR 0.9 (<1.2); Partial Thromboplastin Time 24.1 sec (22.0-30.0); Prothrombin Time 10.3 sec (10.0-12.5)
[2024-08-20 23:28] LABS: ALT 23 U/L (4-34); AST 29 U/L (14-36); African American GFR (CKD) >90 (>60 ml/min/1.73 sqM); Albumin 3.5 g/dL (3.5-5.0); Alkaline Phosphatase 127 U/L (38-126); Anion Gap 6 mmol/L; Blood Urea Nitrogen 8 mg/dL (7-17); Calcium 9.4 mg/dL (8.4-10.2); Carbon Dioxide 22 mmol/L (22-30); Chloride 109 mmol/L (98-107); Glucose 98 mg/dL (74-99); Magnesium 1.9 mg/dL (1.6-2.3); Non-African American GFR(CKD) >90 (>60 ml/min/1.73 sqM); Phosphorus 4.5 mg/dL (2.5-4.5); Potassium 3.8 mmol/L (3.5-5.1); Sodium 137 mmol/L (137-145); Total Bilirubin 0.5 mg/dL (0.2-1.3)
[2024-08-20] MEDS: SODIUM CHLORIDE 0.9% 1,000 ML IV STA (23:38)
[2024-08-21 01:33] LABS: Appearance,Urine Cloudy (Clear); Bacteria,Urine Rare /hpf; Bilirubin,Urine Negative (Negative); Blood,Urine Large (Negative); Color,Urine Yellow; Glucose,Urine (UA) Negative (Negative); Ketones,Urine Negative (Negative); Leukocyte Esterase,Urine Moderate (Negative); Mucus,Urine Many /hpf; Nitrite,Urine Negative (Negative); PH, Urine 5.5 (5.0-8.0); Protein,Urine Trace (Negative); RBC,Urine >182 /hpf (0-5); Specific Gravity,Urine 1.018 (1.001-1.035); Squamous Epithelial Cell,Urine 2 /hpf (0-4); Urobilinogen,Urine <2.0 mg/dL (<2.0); WBC,Urine 64 /hpf (0-5)
[2024-08-21] MEDS: ACETAMINOPHEN TAB 500 MG TAB PO STA (02:37)
[2024-08-21 04:05] VITALS: BP 125/82; PULSE 70
--- NOTE | 2024-08-21 04:11 | US ---
EXAM: US Pelvis Transabdominal, Complete CLINICAL HISTORY: ITS.REASON US Reason: PPH TECHNIQUE: Real-time complete transabdominal pelvic ultrasound with image documentation. COMPARISON: None FINDINGS: Uterus: Enlarged uterus measures 16.5 x 8.1 x 12.4 cm. No focal myometrial lesion. Endometrium measures 23.2 mm. No associated color Doppler flow in the endometrium. Right ovary: Measures 3.6 x 4.2 x 3.3cm. Multiple follicles. Normal color Doppler flow. Left ovary: Measures 3.9 x 2.6 x 3.6 cm. Multiple follicles. Normal color Doppler flow. Other: No free fluid. No adnexal mass. IMPRESSION: Enlarged uterus without definite evidence for retained products of conception. If there is persistent concern for this, consider short-term follow-up exam and serial beta hCG measurements.
== END 2024-08-21 04:05 | disposition home or self-care (01) ==
LOC: EC 22:40
DX: O72.2 Delayed and secondary postpartum hemorrhage (principal)
CPT/HCPCS: 36415; 76856; 80053; 81001; 83605; 83735; 84100; 85025; 85610; 85730; 86850; 86900; 86901; 93005; 93975; 96360; 99285